=== PATIENT | male | born 1975 | race Caucasian/White ===

== ENCOUNTER 2022-11-08 18:35 | Emergency (ER) | payer MEDICAID, SELFPAY ==
--- NOTE | ~2022-11-08 | XR_ITS ---
EXAMINATION: XR FINGER, RIGHT CLINICAL INFORMATION: Right fifth finger dislocation. COMPARISON: None available. TECHNIQUE: 3 views of the right fifth finger. PA view of the right hand and oblique and lateral views of the fifth finger are acquired. FINDINGS: There is no evidence of acute fracture or dislocation in the fifth finger. The MCP joint alignment is also maintained. Remainder of the visualized osseous structures grossly appear unremarkable. XR/XR finger RT min 2V IMPRESSION: No evidence of acute fracture or dislocation in the right hand fifth finger.
--- NOTE | 2022-11-08 18:43 | ED_ITS ---
HPI - Extremity Injury (Upper) General Chief Complaint: Extremity Injury, Upper Stated Complaint: dislocated finger Time Seen by Provider: 11/08/22 21:21 Source: patient Mode of arrival: ambulatory Limitations: no limitations History of Present Illness HPI narrative: 47-year-old male with history of hypertension [id number] here with complaints of right 5th digit pain and difficulty with moving the finger. Patient reports he was playing Frisbee and his finger hyperextended. Patient tells me that he felt it dislocated and so he put it back into place before coming in. He tells me that since that happened it dislocated 2 more additional times just during his movement of the finger and he was able to put it back in place. Since then he tells me that he has increased pain to the digit and difficulty with flexing the digit. No numbness or tingling of the digit Related Data Previous Rx's Medication Instructions Recorded oxycodone 5 mg tablet 5 mg PO Q6H PRN pain #10 tabs 11/08/22 Allergies Allergy/AdvReac Type Severity Reaction Status Date / Time No Known Allergies Allergy Unverified 02/16/20 15:41 [No Known Allergies*] Review of Systems Review of Systems: Yes all other systems are reviewed and are negative Constitutional: Constitutional: Reports no additional constitutional complaints, Denies body ache(s), Denies chills, Denies fever(s), Denies head ache(s) and Denies weakness Eyes: Eyes: Reports no additional eye complaints and Denies change in vision ENT: Reports system reviewed and no additional complaints, except as documented, Denies dizziness, Denies headache(s), Denies nasal congestion, Denies nasal discharge and Denies neck pain Cardiovascular: Cardiovascular: Reports no additional cardiovascular complaints, Denies chest pain, Denies leg edema and Denies dyspnea Respiratory: Respiratory: Reports no additional respiratory complaints, Denies cough and Denies dyspnea Gastrointestinal: Gastrointestinal: Reports no additional gastrointestinal complaints, Denies abdominal pain, Denies diarrhea, Denies nausea and Denies vomiting Genitourinary: Genitourinary: Denies urinary incontinence Musculoskeletal: Musculoskeletal: Reports no additional musculoskeletal complaints, Denies back pain, Reports arthralgias, Reports joint swelling, Denies neck pain, Denies numbness and Denies tingling Integumentary/Breasts: Skin/Breast: Reports system reviewed and no additional complaints, except as docu and Denies rash Neurologic: Reports system reviewed and no additional complaints, except as documented, Denies Abnormal speech present, Denies dizziness, Denies headache(s), Denies numbness, Denies tingling and Denies weakness PMFSH Past Medical History Attestation statement: The following information was validated with the patient. Source: old records reviewed and nursing notes reviewed Social History Social History Advance Directives: No Advance Directives Information Provided: No Physical Exam Vital Signs: Vital Signs: Last Vital Signs Temp 97.8 F 11/08/22 18:44 Pulse 82 11/08/22 18:44 Resp 18 11/08/22 18:44 BP 141/81 H 11/08/22 18:44 Pulse Ox 96 11/08/22 18:44 O2 Del Method Room Air 11/08/22 18:44 BMI result Body Mass Index 31.1 Const: General: cooperative, healthy appearing, comfortable and no acute distress Orientation/consciousness: patient oriented x3 Limitations: no limitations HEENT: Head: Yes normal to inspection Ears: hearing grossly normal bilaterally General nose exam: Normal external nose present Face and sinus: Yes normal facial exam Mouth: Normal oral and palatal mucosa present Throat: Yes posterior oropharynx normal Eyes: General: appearance normal, both eyes and all related structures Pupils: Equal, round and reactive pupils present Neck: Neck: Yes normal visual inspection Chest: Chest palpation & inspection: normal inspection of the chest Resp: Effort & Inspection: normal respiratory effort Auscultation: clear to auscultation bilaterally Cardio: Rate: regular rate Rhythm: regular rhythm Peripheral pulses: Peripheral pulses 2+ throughout GI: Inspection: Yes normal to inspection Palpation (GI): Soft to palpation and nontender Auscultation: normal bowel sounds Back/Spine/Pelvis: Thoracic/Lumbar Spine: thoracic and lumbar spine normal to inspection Skin: General skin exam: no rashes or lesions noted Neuro: General: patient oriented x3, no focal motor deficits and normal sensation to monofilament Cranial nerves: Yes Equal, round and reactive pupils present Cognition (Neuro): normal cognition Speech: No Abnormal speech present Gait exam (Neuro): Normal gait present Motor exam (neuro): 5/5 motor strength present throughout Extrem: Other: Patient has swelling over the entire right 5th digit with ecchymosis. There is no obvious deformity. Patient reports inability to flex the digit. He has normal cap refill distant. Normal sensation distal. Course Course Course Narrative: RME - 47 yo right hand dominant male presents to the ER for evaluation of a right pinky finger dislocation that occurred just prior to arrival while playing frisbee. He state at the PIP joint the finger juts out laterally when it is not tied to his ring finger. He has reduced the dislocated joint 3 times already and states it keeps popping out. currently fully extended and appears to be in place. Plan: x-ray to assess for fracture. Reevaluation(s) Reevaluation #1: X-ray show no acute fracture dislocation. Based on the amount of swelling and ecchymosis with limited ability to perform flexion there may be ligamental injury. Therefore I will place the patient in a finger splint with recommendations to follow-up outpatient with Hand surgery. Reviewed worrisome signs and symptoms of when to return to the emergency room. Comfortable plan for discharge home. Medications Administered Discontinued Medications Generic Name Dose Route Start Last Admin Trade Name Freq PRN Reason Stop Dose Admin Ibuprofen 800 mg 11/08/22 19:45 11/08/22 19:50 Ibuprofen 800 Mg Tablet PO 11/08/22 19:46 800 mg ONCE ONE Administration Oxycodone HCl 5 mg 11/08/22 21:45 11/08/22 22:43 Oxycodone Hcl Immed Release 5 Mg Tablet PO 11/08/22 21:46 5 mg ONCE ONE Administration Medical Decision Making Medical Decision Making [facility] Narrative: 47-year-old male [id number] here with right 5th digit pain inability to flex digit after an injury which occurred while playing Frisbee. Patient is concerned that he may have dislocated the finger several times prior to arrival and reduced it himself. Still having a lot of pain and difficulty with range of motion. On exam patient with ecchymoses, swelling over the right 5th entire digit with reports of inability to flex the digit. Will check x-ray Differential Diagnosis Differential Diagnoses: The differential diagnosis associated with the presentation includes Fracture, dislocation, ligamental injury, tendon injury Independent Interpretation I performed an independent interpretation of an: Plain X-Ray Interpretation: I indepedentely reviewed the x-ray and agree with radiologist's report Radiology Impression Discussion of test interpretation with radiology: I have reviewed the radiologist's reading. Radiologist Impression: [address] [address] XRay Report Signed Patient: Alec Acosta MR#: [id number] : 1975 Acct:[id number] Age/Sex: 47 / M ADM Date: 11/08/22 Loc: HO.ED Attending Dr: Ordering Physician: Renita Colindres Date of Service: 11/08/22 Procedure(s): XR finger RT min 2V Accession Number(s): [id number] cc: Renita Colindres~ EXAMINATION: XR FINGER, RIGHT CLINICAL INFORMATION: Right fifth finger dislocation.? COMPARISON: None available.? TECHNIQUE: 3 views of the right fifth finger. PA view of the right hand and oblique and lateral views of the fifth finger are acquired. FINDINGS: There is no evidence of acute fracture or dislocation in the fifth finger. The MCP joint alignment is also maintained. Remainder of the visualized osseous structures grossly appear unremarkable. XR/XR finger RT min 2V IMPRESSION: No evidence of acute fracture or dislocation in the right hand fifth finger. Discharge Plan Discharge Clinical Impression: Sprain of finger of right hand Patient Disposition: Home, Self-Care Instructions: Finger Sprain (ED) Additional Instructions: The x-ray shows no fracture or dislocation. However due to her limited range of motion you may have an injury to the ligament or tendon We are placing you in a splint which is for comfort only Continue Motrin which will help with inflammation and pain Apply ice to the area Take the pain medication only as needed Call Orthopedics next week for follow-up Prescriptions: New oxycodone 5 mg tablet 5 mg PO Q6H PRN (Reason: pain) Qty: 10 0RF Rx Instructions: Partial Fill upon patient request. Referrals: [facility] [Provider Group] - 5 days Interventions: ED Discharge Assessment Last Done: 11/08/22 22:30 Discharge Date/Time: 11/08/22 22:31
[2022-11-08 18:44] VITALS: BP 141/81; PULSE 82; RESP 18; TEMP 36.6; O2SAT 96; BMI 31.1
[2022-11-08] MEDS: Ibuprofen 800 MG TABLET PO (19:50)
[2022-11-08] MEDS: oxyCODONE HCl Immed Release 5 MG TABLET PO (22:43)
== END 2022-11-08 22:31 | disposition home or self-care (01) ==
PROVIDERS: Emergency Provider Emergency Medicine
DX: S63.616A Unspecified sprain of right little finger, initial encounter (principal); X50.1XXA Overexertion from prolonged static or awkward postures, initial encounter; Y93.74 Activity, frisbee; Y92.9 Unspecified place or not applicable; Y99.9 Unspecified external cause status
CPT/HCPCS: 29130; 73140; 99283

== ENCOUNTER 2022-11-21 10:18 | Outpatient (REF) | payer MEDICAID, SELFPAY ==
--- NOTE | ~2022-11-21 | XR_ITS ---
EXAMINATION: XR HAND, RIGHT CLINICAL INFORMATION: Pain COMPARISON: Previous x-ray 11/08/2022 TECHNIQUE: PA, lateral, and oblique views of the right hand. FINDINGS: There are new soft tissue calcifications or ossifications adjacent to the proximal phalanx of the fifth finger at the PIP joint. Appearance is questionable for small avulsion fracture versus a soft tissue trauma. There is adjacent soft tissue swelling. No other fracture. No dislocation. Joint spaces and soft tissues are otherwise normal. XR/XR hand RT min 3V IMPRESSION: New small soft tissue calcifications or ossifications adjacent to the proximal phalanx of the fifth finger at the PIP joint. Differential would include avulsion fracture and trauma to the soft tissues.
== END 2022-11-21 10:19 | disposition home or self-care (01) ==
LOC: HO.HOSX 10:18
PROVIDERS: Visit Provider Physician Assistant
DX: S62.306A Unspecified fracture of fifth metacarpal bone, right hand, initial encounter for closed fracture (principal)
CPT/HCPCS: 73130; 99202

== ENCOUNTER 2023-08-11 08:49 | Outpatient (REF) | payer MEDICAID, SELFPAY ==
[2023-08-11 11:53] LABS: Alanine Aminotransferase 21 U/L (0-40); Albumin Level 4.6 g/dL (3.5-5.0); Alkaline Phosphatase 38 U/L (39-117); Anion Gap 11 (12-20); Aspartate Amino Transferase 20 U/L (5-37); Bilirubin Total 0.7 mg/dL (0.0-1.0); Blood Urea Nitrogen 14 mg/dL (9-16); Calcium 10.2 mg/dL (8.4-10.2); Carbon Dioxide 29 mmol/L (22-29); Chloride 104 mmol/L (96-108); Cholesterol 127 mg/dL (<200); Estimated Glomerular Filt Rate > 60; Glucose Random 103 mg/dL (60-115); HDL Cholesterol 50 mg/dL (>40); LDL Cholesterol Calculated 59 mg/dL (<100); Potassium 3.8 mmol/L (3.3-5.1); Sodium 140 mmol/L (135-145); Total Protein 8.2 g/dL (6.5-8.0); Triglycerides 92 mg/dL (<150)
== END 2023-08-11 08:50 | disposition home or self-care (01) ==
LOC: HO.HHCL 08:49
PROVIDERS: Visit Provider Registered Nurse
DX: I10 Essential (primary) hypertension (principal)
CPT/HCPCS: 36415; 80053; 80061

== ENCOUNTER 2023-10-23 11:31 | Outpatient (REF) | payer MEDICAID, SELFPAY ==
[2023-10-27 17:54] LABS: Rubella IgG Antibody <0.90 Index; Rubeola IgG (Measles) >300.00 AU/mL
== END 2023-10-23 11:32 | disposition home or self-care (01) ==
LOC: HO.HHCL 11:31
PROVIDERS: Visit Provider Registered Nurse
DX: Z00.00 Encounter for general adult medical examination without abnormal findings (principal)
CPT/HCPCS: 36415; 86735; 86762; 86765

== ENCOUNTER 2024-01-12 14:09 | Outpatient (REF) | payer MEDICAID, SELFPAY ==
--- NOTE | ~2024-01-12 | US_ITS ---
EXAMINATION: US SCROTUM CLINICAL INFORMATION: Testicular mass, hydrocele/varicocele. COMPARISON: None available. TECHNIQUE: A sonogram of the scrotum was performed assessing castrejon-scale appearance and color Doppler flow. Spectral Doppler analysis of the arterial and venous flow were performed in the testes bilaterally. FINDINGS: RIGHT: Right testicle measures 5.0 x 2.6 x 3.5 cm, volume 22.9 mL. Parenchymal echotexture is homogeneous. No focal testicular parenchymal lesions are visualized. Spectral Doppler analysis of the arterial and venous flow is normal in the right testis. Right epididymal head is normal in size. There is a epididymal head cyst that measures 2.5 No right hydrocele or varicocele is seen. LEFT: Left testicle measures 4.6 x 2.2 x 3.8 cm, volume 20.1 mL. Parenchymal echotexture is homogeneous. No focal testicular parenchymal lesions are visualized. Incidental note of a small appendix testis. Spectral Doppler analysis of the arterial and venous flow is normal in the left testis. Left epididymal head is normal in size. There is an epididymal head cyst that measures 1.7 x 1.1 x 1.6 cm. No left hydrocele or varicocele is seen. US/US scrotum IMPRESSION: Bilateral epididymal head cysts, the larger is on the right which measures 2.5 1.7 x 2.5 cm. Incidental note of an appendix testis on the left which is a normal anatomic variant. No testicular lesions identified. Electronically signed by: Jose Blair MD 02/03/2024 04:57 PM EDT
== END 2024-01-12 14:10 | disposition home or self-care (01) ==
LOC: HO.US 14:09
PROVIDERS: Visit Provider Nurse Practitioner Primary Care
DX: N50.89 Other specified disorders of the male genital organs (principal)
CPT/HCPCS: 76870

== ENCOUNTER 2024-04-11 08:54 | Outpatient (AMB) | payer MEDICAID, SELFPAY ==
--- NOTE | 2024-04-11 08:56 | A.OFFVIS_ITS ---
Intake Visit Reasons: bilateral epididymal cysts Intake Note: New Patient presents for initial visit for bilateral epididymal cysts Urology Medications: none Blood Thinner: none County Engineer Required: No Accompanied by: Self / Same As Patient Allergies No Known Allergies [No Known Allergies*] Allergy (Verified 04/11/24 09:30) Medication List - Last Reconciled 04/11/24 by TAMRA Perrin cetirizine 10 mg PO DAILY hydrochlorothiazide 25 mg PO DAILY lisinopril 10 mg PO DAILY rosuvastatin 20 mg PO DAILY HPI Comments Details: Alec is a very pleasant 48-year-old male patient of Dr. Estrada. He has a past medical history of hypertension and hypercholesteremia. He presents to the office today as a new patient for bilateral epididymal head cysts. In discussion with the patient today he reports having followed up with his PCP for abnormal lumps he had noted in his scrotum at which time a scrotal ultrasound was ordered and performed. These results were reviewed with the patient today. Bilateral testicles with epididymal head cysts, the largest on the right which measures a proximally 2.5 cm otherwise no testicular lesions noted. He reports having had scrotal assessment with PCP and does not wish to undergo assessment today. He reports no bothersome urinary issues or concerns. He reports at times he does feel fullness to the testicles however he has not experienced any testicular pain and or nausea or vomiting. He denies urinary urgency, urinary frequency, incontinence, nocturia, hematuria, dysuria, foul smelling urine, changes to urinary stream, flank pain, fever, and or chills. He is happy with her current voiding parameters. He otherwise offers no other issues or concerns today. [facility] Medical History History of high cholesterol History of high blood pressure Social History Alcohol intake: former Patient Tobacco Use Status: Former Tobacco user Current occupational status: unemployed Current occupation: right hand dominant Review of Systems Const All systems reviewed & are unremarkable except as noted in HPI and below Physical Exam Const General: cooperative, healthy appearing, comfortable, no acute distress, well developed, alert and awake Orientation/consciousness: patient oriented x3 Limitations: no limitations HEENT Head: Yes normal to inspection, Yes normocephalic and Yes atraumatic Ears: hearing grossly normal bilaterally Eyes General: appearance normal, both eyes and all related structures Neck Neck: Yes normal visual inspection and Yes trachea midline Chest Chest palpation & inspection: normal inspection of the chest Resp Effort & Inspection: normal respiratory effort and able to speak in complete sentences Cardio Rate: regular rate GI Inspection: Yes normal to inspection General: Yes no CVA tenderness Back/Spine/Pelvis Back: no CVA tenderness Skin General skin exam: no rashes or lesions noted Neuro General: patient oriented x3 Extrem General: Yes normal to inspection Psych Appearance: grossly normal and well kempt Mental Status: mental status grossly normal Speech and movement: Normal speech and movement present and Clear speech present Affect: normal affect Attitude: cooperative Thought process: Normal thought process present Thought content: Normal thought content present Insight: Fair insight present (Psych) Judgement: Fair judgement present (Psych) Results AMB Urinalysis, Automated UA Leukoctes 0 Park/uL Last Edit by [employer] on 04/11/24 09:18 UA Nitrite Last Edit by [employer] on 04/11/24 09:18 UA Urobilinogen 0.2 mg/dL Last Edit by [employer] on 04/11/24 09:18 UA Protein 0 mg/dL Last Edit by [employer] on 04/11/24 09:18 UA pH 5.5 Last Edit by [employer] on 04/11/24 09:18 UA Blood 80 [place]/uL Last Edit by [employer] on 04/11/24 09:18 UA Specific [place] 1.020 Last Edit by [employer] on 04/11/24 09:18 UA Ketone Last Edit by [employer] on 04/11/24 09:18 UA Bilirubin 0 mg/dL Last Edit by [employer] on 04/11/24 09:18 UA Glucose 0 mg/dL Last Edit by [employer] on 04/11/24 09:18 Results Reviewed Results Reviewed: Laboratory Last Values Urine pH (Auto) 5.5 04/11/24 09:14 Specific [place] (Auto) 1.020 04/11/24 09:14 Urine Protein (Auto) 0 mg/dL 04/11/24 09:14 Glucose (UA)(Auto) 0 mg/dL 04/11/24 09:14 Urine Blood (Auto) 80 [place]/uL 04/11/24 09:14 Urine Bilirubin (Auto) 0 mg/dL 04/11/24 09:14 Urine Urobilinogen (Auto) 0.2 mg/dL 04/11/24 09:14 Leukocyte Esterase (Auto) 0 Park/uL 04/11/24 09:14 Date of Service: 01/12/24 Procedure(s): US scrotum FINDINGS: RIGHT: Right testicle measures 5.0 x 2.6 x 3.5 cm, volume 22.9 mL. Parenchymal echotexture is homogeneous. No focal testicular parenchymal lesions are visualized. Spectral Doppler analysis of the arterial and venous flow is normal in the right testis. Right epididymal head is normal in size. There is a epididymal head cyst that measures 2.5 No right hydrocele or varicocele is seen. LEFT: Left testicle measures 4.6 x 2.2 x 3.8 cm, volume 20.1 mL. Parenchymal echotexture is homogeneous. No focal testicular parenchymal lesions are visualized. Incidental note of a small appendix testis. Spectral Doppler analysis of the arterial and venous flow is normal in the left testis. Left epididymal head is normal in size. There is an epididymal head cyst that measures 1.7 x 1.1 x 1.6 cm. No left hydrocele or varicocele is seen. IMPRESSION: Bilateral epididymal head cysts, the larger is on the right which measures 2.5 1.7 x 2.5 cm. Incidental note of an appendix testis on the left which is a normal anatomic variant. No testicular lesions identified. Assessment & Plan Assessment & Plan (1) Epididymal cyst: Code(s): N50.3 - Cyst of epididymis Category: Medical Plan In office urinalysis results with the patient today; as noted above; will send for urine cytology. Recent scrotal ultrasound results reviewed with the patient today; as noted above. Assessment offered however deferred. We discussed at length potential causes epididymal head cysts. He otherwise denies any bothersome urinary issues or concerns. He reports be happy with current voiding parameters. Discussed worsening symptoms. Will obtain scrotal ultrasound in 1 year for surveillance monitoring. Follow-up in 1 year with imaging to be completed prior; or sooner with any issues, concerns, and or questions. Orders: Orders US scrotum 1 Year N50.3 - Cyst of epididymis AMB Urinalysis Automated Today Z13.9 - Encounter for screening, unspecified Patient Instructions: The patient had an opportunity to ask questions regarding the treatment plan. All questions were answered. Physical exam, labs, and imaging were discussed and reviewed in detail. As well as risks, benefits, and discussion of treatment delarosa isaias. No major barriers to understanding were identified. The patient expressed understanding and agreement with the above treatment plan. The patient was made aware they should contact our office by phone for worsening of their current condition, the appearance of new symptoms, or with any questions or concerns. Compliance is encouraged with any medications and follow up testing that is ordered. It is a privilege to be allowed the opportunity to participate in? your urological care.? Again, if you have any questions or concerns If you have any questions or concerns please do not hesitate to contact me. The office is [phone]. This note is constructed using voice recognition software. While every effort has been made to ensure accuracy movie shot camera operator errors may have been included. Yours sincerely, TAMRA Perrin Coding Level of Care Code New Pt Level 3 (46414) Diagnoses Epididymal cyst N50.3
== END 2024-04-11 09:30 | disposition home or self-care (01) ==
PROVIDERS: PCP Nurse Practitioner Primary Care; Visit Provider Nurse Practitioner Family
DX: N50.3 Cyst of epididymis (principal); Z13.9 Encounter for screening, unspecified
CPT/HCPCS: 99203

== ENCOUNTER → 2024-04-11 08:54 | Outpatient (BNVA) | payer MEDICAID, SELFPAY | PROVIDERS: PCP Nurse Practitioner Primary Care; Visit Provider Nurse Practitioner Family | DX: N50.3 Cyst of epididymis (principal) | CPT/HCPCS: 81003; 99212 ==

== ENCOUNTER 2024-04-20 08:38 | Outpatient (REF) | payer MEDICAID, SELFPAY ==
[2024-04-20 11:50] LABS: Estimated Average Glucose 108 mg/dL; Hemoglobin A1C 143.6477 umol/L; Hemoglobin A1c % 5.4 % (<6.0); Total Hemoglobin (HGBA1C) 3986.6906 umol/L
[2024-04-20 12:08] LABS: Alanine Aminotransferase 65 U/L (0-40); Albumin Level 4.4 g/dL (3.5-5.0); Alkaline Phosphatase 34 U/L (39-117); Anion Gap 11 (12-20); Aspartate Amino Transferase 99 U/L (5-37); Bilirubin Total 0.6 mg/dL (0.0-1.0); Blood Urea Nitrogen 17 mg/dL (9-16); Calcium 9.7 mg/dL (8.4-10.2); Carbon Dioxide 27 mmol/L (22-29); Chloride 104 mmol/L (96-108); Cholesterol 134 mg/dL (<200); Estimated Glomerular Filt Rate > 60; Glucose Random 100 mg/dL (60-115); HDL Cholesterol 51 mg/dL (>40); LDL Cholesterol Calculated 55 mg/dL (<100); Potassium 3.6 mmol/L (3.3-5.1); Sodium 138 mmol/L (135-145); Total Protein 7.6 g/dL (6.5-8.0); Triglycerides 144 mg/dL (<150)
[2024-04-20 12:29] LABS: TSH reflex Free T4 1.64 uIU/mL (0.32-4.0)
== END 2024-04-20 08:39 | disposition home or self-care (01) ==
LOC: HO.HHCL 08:38
PROVIDERS: Visit Provider Registered Nurse
DX: R63.5 Abnormal weight gain (principal)
CPT/HCPCS: 36415; 80053; 80061; 83036; 84443

== ENCOUNTER 2024-04-26 15:47 | Outpatient (REF) | payer MEDICAID, SELFPAY | END 2024-04-26 15:48 | disposition home or self-care (01) | LOC: HO.US 15:47 | PROVIDERS: PCP Nurse Practitioner Primary Care; Visit Provider Registered Nurse | DX: R22.1 Localized swelling, mass and lump, neck (principal) | CPT/HCPCS: 76536 ==

== ENCOUNTER 2024-06-16 08:58 | Outpatient (REF) | payer MEDICAID, SELFPAY ==
[2024-06-16 12:39] LABS: Alanine Aminotransferase 41 U/L (0-40); Albumin Level 4.3 g/dL (3.5-5.0); Alkaline Phosphatase 33 U/L (39-117); Aspartate Amino Transferase 39 U/L (5-37); Bilirubin Direct 0.3 mg/dL (0.0-0.5); Bilirubin Total 0.7 mg/dL (0.0-1.0); Total Protein 7.9 g/dL (6.5-8.0)
== END 2024-06-16 08:59 | disposition home or self-care (01) ==
LOC: HO.HHCL 08:58
PROVIDERS: Visit Provider Registered Nurse
DX: E78.2 Mixed hyperlipidemia (principal)
CPT/HCPCS: 36415; 80076

== ENCOUNTER 2024-07-14 11:16 | Outpatient (REF) | payer MEDICAID, SELFPAY ==
--- NOTE | ~2024-07-14 | US_ITS ---
CLINICAL HISTORY: liver enzyme elevation, suspected hepatic steatosis US abdomen limited Comparison: None Findings: The visualized pancreas is normal. The aorta and inferior vena cava are normal caliber. The appearance of the liver suggests fatty infiltration without focal lesion. There is no intrahepatic bile duct dilatation. The common duct is 3.0 mm in diameter. The gallbladder is normal. There is no sonographic Duran sign. The main portal vein is antegrade. The right kidney is 13.6 cm in length. No ascites. IMPRESSION: 1. Hepatic steatosis. This document has been electronically signed by: Taimr Laguerre MD on 07/15/2024 08:31:18
--- OUTSIDE RECORDS SUMMARY | 2024-07-14 11:54 | XMS_ITS | Encounter Summary ---
Author Organization [employer] Address [address] [place] [address] Care Team Providers Care Felting Machine Operator Name Role Phone Florina Marshall [facility] Primary Care Provider [phone] Reason for Visit * Reason Onset Date Comments Results 06/17/2024 Encounter Details Date Type Department Care Team ([facility] st Contact Info) Description 06/17/[address] [facility] MEDICINE [address] [place] [address] Belle Miller RN Results Social History Tobacco Use Types Packs/Day Years Used Date Smoking Tobacco: Former Cigarettes Smokeless Tobacco: Never Alcohol Use Standard Drinks/Week Comments Never 0 (1 standard drink = 0.6 oz pur e alcohol) Alcohol Answer Date Recorded Frequency of Alcohol Consumption Not on file 08/07/2023 Average Number of Drinks Not on file 024 Frequency of Binge Drinking Not on file 12/2023 Score 0 08/07/2023 Depression Answer Date Recorded Patient Health Questionnaire-9 Score 0 10/16/2023 Patient Health Questionnaire-9 Score 0 10/16/2023 Last PHQ-9: Questionnaire Data Not on file 0 10/16/2023 Housing Stability Answer Date Recorded What is your housing situation today? I have jose flores 08/07/[address] you li ve. Do you have problems with any of the following? None of the above 08/07/2023 Food Insecurity Answer Date Recorded Within the past 12 months, y ou worried that your food would run out before you got money to buy more: Never True 08/07/2023 Within the past 12 months,th e food you bought just didn't last and you didn't have enough money to get more: Never True 12/2023 Transportation Answer Date Recorded In the past 12 months, has l ack of transportation kept you from medical appts, meetings, work or from getting things needed for daily living? No 08/07/2023 Utilities Answer Date Recorded In the past 12 months, has t he electric, gas, oil or water company threatened to shut off services in your home? No 08/07/2023 Depression Answer Date Recorded Patient Health Questionnaire-2 Score 0 10/16/2023 Internet Access Answer Date Recorded Internet Access Q1 Yes 04/08/2024 Internet Access Q2 Not on file 04/08/2024 Sex and Gender Information Value Date Recorded Sex Assigned at Male 03/31/2022 10:36 AM EDT Legal Sex Male 10:36 AM EDT Gender Identity Male 03/31/2022 10:36 AM EDT Sexual Orientation Straight 03/31/2022 10 :36 AM EDT documented as of this encounter Miscellaneous Notes * Telephone Encounter - Belle Miller RN - 06/17/2024 4:03 PM EST Telephone call to pt to advise that liver enzyme levels are improving but given the persistent elevation, PCP ordered abdominal ultrasound to examine this further. Informed pt that referral is under review and that [facility] will call in the next 1-2 weeks to schedule an appt for the ultrasound. Pt verbalized understanding, no further questions at this time. * Telephone Encounter - Belle Miller RN - 06/17/2024 3:57 PM EST ----- Message from Florina Marshall sent at 06/17/2024 3:49 PM EST ----- Please let patient know that liver enzyme elevation is improving however given how persistent this has been I would like to order an ultrasound of the liver. Thank you! documented in this encounter Plan of Treatment Not on file documented as of this encounter Visit Diagnoses Not on filedocumented in this encounter Additional Health Concerns Assessment Noted Time PHQ-9 Depression Total Score: 0 10/16/19 24 9:50 AM EDT documented as of this encounter Care Teams Felting Machine Operator Relationship Specialty Start Date End Date Florina Marshall FNP [address] [place] [address] PCP - General Family Medicine 02/27/21 documented as of this encounter
--- OUTSIDE RECORDS SUMMARY | 2024-07-14 11:54 | XMS_ITS | Clinical Summary ---
Author Organization [employer] Address [address] [facility] 7[address] [place] [address] Care Team Providers Care Implementation Advisor Name Role Phone Florina Marshall [facility] Primary Care Provider [phone] Allergies No known active allergies Medications cetirizine (ZyrTEC) 10 MG tabletIndications :Seasonal allergies TAKE 1 TABLET BY MOUTH ONCE DAILY 90 tablet 1 4 Active triamcinolone (Kenalog) 0.1 % ointment Apply topically 2 times daily. 15 g 2 4 Active lisinopril 10 MG tablet TAKE 1 TABLET BY MOUTH EVERY DAY 90 tablet 3 4 Active rosuvastatin (Crestor) 20 MG tablet Take 1 tablet (20 mg) by mouth Once per day. 90 tablet 4 Active hydroCHLOROthiazi de (HYDRODiuril) 25 MG tabletIndications :Essential hypertension TAKE 1 TABLET BY MOUTH EVERY DAY 90 tablet 1 4 Active Active Problems Problem Noted Date Diagnosed Date Tinnitus 12/22/2023 Elevated blood pressure reading 12/22/2023 Plantar fasciitis 12/22/2023 Chronic pain 12/22/2023 Milia of eyelid of left eye 12/11/2023 Assessment & Plan (12/11/2023 3:26 PM EDT): Clinical findings of left lower eyelid are consistent w tiny milia w no complaints so more cosmetic -explained pt are not concerning findings and not affecting vision ,pt would like to have annual eye exam so referred today to metal sorter -no stye or chalazion , no indication for ATB Essential hypertension 08/10/2023 Overview (08/10/2023): Hydrochlorothiazide 25mg Lisinopril 10mg Maintenance: - Aerobic exercise to reduce BP. Initial goal of 30 min walk 3-5x/week. Increase as tolerated. - low-sodium diet (goal: <2g/day) and heart healthy diet such as DASH to reduce BP and prevent ASCVD. - Home BP monitoring 1-2 x day with goal of <140/90. - Seek immediate medical attention for chest pain, palpitations, SOB, syncope, or sudden changes in mental status. - Do not change or discontinue current prescriptions without first consulting health care provider Assessment & Plan (08/10/2023 9:05 AM EDT): Well controlled Continue current regimen Healthcare maintenance 08/10/2023 Overview (10/16/2023): C-Scope: cologuard neg 07/2023 PSA: Routine age 50 AAA Screen: Age [address] screen: Age 50 Vision Exam: Through [facility], COD Dental Care: [facility] [place] History of tobacco use disorder 08/10/2023 Overview (08/10/2023): Former Quit 2021 Assessment & Plan (08/12/2023 6:35 AM EDT): Congratulated patient Mixed hyperlipidemia 08/10/2023 Overview (08/10/2023): Rosuvastatin 20mg daily Assessment & Plan (08/12/2023 6:35 AM EDT): Well controlled Continue current regimen Encounters Date Type Department Care Team Description 06/22/2024 Orders Only [facility] [address] [place] [address] Florina Marshall FNP Neck mass (Primary Dx) 06/17/2024 Telephone [facility] [address] [place], [place] [phone] Belle Miller, RN Results 06/17/2024 Orders Only [facility] [address] [place], [place] [phone] Florina Marshall, LIVE HANGER Elevated liver enzymes (Primary Dx) 06/15/2024 Orders Only [facility] [address] [facility] [place] [address] Florina Marshall KATHRINE Mixed hyperlipidemia (Primary Dx) 06/14/2024 Telephone [facility] [address] [facility] [place] [address] Rolando KATHRINE Heaton Call Back Request 05/12/2024 Refill [facility] [address] [place] [address] Florina MarshallKATHRINE Essential hypertension 04/21/2024 Telephone [facility] [address] [facility] [place] [address] Florina MarshallKATHRINE Results 04/18/2024 1:00 PM EST Office Visit [facility] [address] [place] [address] Florina MarshallKATHRINE Essential hypertension (Primary Dx); Weight gain; Lump in neck 04/18/2024 Refill [facility] [address] [place], [place] [phone] Florina MarshallKATHRINE Essential hypertension 04/18/2024 Refill [facility] [address] [facility] [place] [address] Florina MarshallKATHRINE 04/18/2024 Travel from Last 3 Months Immunizations Name Administration Dates Next Due Hep B, adult 01/30/2022,11/05/2021 MMR 10/29/2023 Tdap 04/20/2019 Social History Tobacco Use Types Packs/Day Years Used Date Smoking Tobacco: Former Cigarettes Smokeless Tobacco: Never Tobacco Cessation:Counseling Given: Not Answered Alcohol Use Standard Drinks/Week Comments Never 0 [...] Orientation Straight 03/31/2022 10 :36 AM EDT Last Filed Vital Signs Vital Sign Reading Time Taken Comments Blood Pressure 136/81 04/18/2024 1:07 PM EST Pulse 81 04/18/2024 1:07 PM EST Temperature 36.2 ??C (97.2 ??F) 04/18/2024 1:07 PM ES T Respiratory Rate 18 04/18/2024 1:07 PM EST Oxygen Saturation 98% 04/18/2024 1:07 PM EST Inhaled Oxygen Concentration - - Weight 129 kg (285 lb) 04/18/2024 1:07 PM EST Height 188 cm (6' 2 ) 04/18/2024 1:07 PM EST Body Mass Index 36.59 04/18/2024 1:07 PM EST Plan of Treatment Health Maintenance Due Date Last Done Comments CT Colonography 1975 Colonoscopy 1975 FIT 1975 FOBT 1975 Sigmoidoscopy 1975 Family Planning (PISQ) 08/23/1990 Hepatitis B Vaccines (3 of 3 - 19+ 3-dose series) 05/07/2022 01/30/2022, 11/05/2021 COVID-19 Vaccine (4 - season) 2024 05/27/2021, 09/21/2020, 08/29/2020 Influenza Vaccine (#1) 2024 Alcohol/Substance Use Screening 08/06/2024 08/07/2023 SDOH Screening 08/06/2024 08/07/2023 Depression Screening 10/15/2024 10/16/2023, 10/16/19 24 Tobacco Screening 06/22/2025 06/22/2024 Zoster Vaccines (1 of 2) 08/23/2025 Colorectal Cancer Screening 08/26/2026 FIT DNA/Cologuard 08/26/2026 08/27/2023 DTaP/Tdap/Td Vaccines (2 - Td or Tdap) 04/20/2029 04/20/2019 Lipid Panel 04/20/2029 04/20/2024, 0307/2023, 05/02/2022, Additional history exists RSV Patients and Patients Aged 60 years or older (1 - 1-dose 75+ series) 08/23/2050 HIV Screening Completed 10/30/2021 Hepatitis C Screening Completed 10/30/2021 HIB Vaccines Aged Out No longer eligi ble based on patient's age to complete this topic HPV Vaccines Aged Out No longer eligi ble based on patient's age to complete this topic Hepatitis A Vaccines Aged Out No long er eligible based on patient's age to complete this topic IPV Vaccines Aged Out No longer eligi ble based on patient's age to complete this topic Meningococcal Vaccine Aged Out No matteo holli eligible based on patient's age to complete this topic Pneumococcal Vaccine: Pediatrics (0 to 5 Years) and At-Risk Patients (6 to 49) Years) Aged Out No longer eligible based on patient's age to complete this topic RSV under 20 months Aged Out No longe r eligible based on patient's age to complete this topic Rotavirus Vaccines Aged Out No longer eligible based on patient's age to complete this topic Procedures Procedure Name Priority Date/Time Associated Diagnosis Comments HEPATIC FUNCTION PANEL Routine 06/16/2024 8:59 AM EST Mixed hyperlipidemia US HEAD NECK SOFT TISSUE Routine 04/26/2024 4:03 PM EST LIPID PANEL, STANDARD Routine 04/20/2024 8:40 AM EST Weight gain HEMOGLOBIN A1C Routine 04/20/2024 8:40 AM EST Weight gain COMPREHENSIVE METABOLIC PANEL Routine 04/20/2024 8:40 AM EST Weight gain TSH W/REFLEX TO FT4 Routine 04/20/2024 8 :40 AM EST Weight gain LAB COLOGUARD?? COLON CANCER SCREEN Routine 08/27/2023 8:04 AM EDT Encounter for screening for malignant neoplasm of colon ZZZ HISTORICAL HEPATITIS C AB W/REFL TO HCV RNA, QN, PCR Routine 10/30/2021 11:37 AM EDT HIV 1/2 ANTIGEN/ANTIBODY, FOURTH GENERATION W/RFL Routine 10/30/2021 11:37 AM EDT from Last 3 Months or Most Recently Relevant to Health Maintenance Results * (ABNORMAL) Hepatic Function Panel (06/16/2024 8:59 AM EST) Bilirubin, Total 0.7 0.0 - 1.0 mg/dL [facility] Bilirubin, Direct 0.3 0.0 - 0.5 mg/dL [facility] Aspartate Amino Transferase 39(H) 5 - 37 U/L [facility] Alanine Aminotransferase 41(H) 0 - 40 U/L [facility] Total Protein 7.9 6.5 - 8.0 g/dL [facility] Albumin Level 4.3 3.5 - 5.0 g/dL [facility] Alkaline Phosphatase 33(L) 39 - 117 U/L [facility] Blood Venous blood specimen / Unknown 06/16/2024 8:59 AM EST 06/16/2024 11:12 AM EST us Florina Rolando LIVE HANGER LAB BLOOD ORDERABLES Final Re sult [facility] [address] [place] [phone] * US Head Neck Soft Tissue (04/26/2024 4:03 PM EST) Anatomical Region Laterality Modality Head, Neck Ultrasound 04/26/2024 4:03 PM EST Narrative 06/18/2024 4:20 PM EST ? [facility] ?[address] ?[place] [address] ? Ultrasound Report ? Signed ? Patient: Alec Acosta ?MR#: [id number] ?? 2 ? : 1975 ?Acct:[id number] ? Age/Sex: 48 / M ?ADM Date: 04/26/24 ? Loc: HO.US ? Attending Dr: Florina Marshall LIVE HANGER ? Ordering Physician: Florina Marshall ?? Date of Service: 04/26/24 ?? Procedure(s): US soft tiss head and/or neck ?? Accession Number(s): [id number] ? cc: VENKAT WATSON NP; Florina Marshall LIVE HANGER ? EXAMINATION: ?? US SOFT TISSUE HEAD/NECK ? CLINICAL INFORMATION: ?? Left firm nodule. ? COMPARISON: ?? None available. ? TECHNIQUE: ?? Linear transducer grayscale and color Doppler examination of the ?? midline/left neck. ? FINDINGS: ?? Targeted ultrasound images were obtained by the development chemist of the area ?? of concern as indicated by the patient in the midline left neck ?? demonstrated a 1.6 x 1.6 x 2.2 cm complex lesion with complex cystic ?? components, well-defined vasquez and no discernible vascularity. ? US/US soft tiss head and/or neck ?? IMPRESSION: ?? 2.2 cm complex cystic mass in the area indicated by the patient in the ?? midline/left neck. While thyroglossal duct cyst could be considered ?? given midline location, other complex cystic masses should also be ?? considered. Correlation with clinical exam and possible additional ?? imaging with CT scan or MRI recommended. ? This study was presented to me on June 15, 2024 for interpretation. ?? PSA staff will provide results to referring provider at this time. ? Electronically signed by: ??Ana M Sevilla MD ??06/18/2024 04:18 PM EST ? Dictated By: ?Ana M Sevilla MD ? Signed By: ?<Electronically signed by Ana M Sevilla MD in OV> ? 06/18/24 1618 ? DD/ 1603 ? TD/TT: 04/26/24 1604 ? Tube Drawing Supervisor: ? Procedure Note Donlawrenceinterpreter, Image - 06/18/[address] [address] Ultrasound Report Signed Patient: Alec Acosta PMR#: [id number] 2 : 1975Acct:[id number] Age/Sex: 48 / MADM Date: 04/26/24 Loc: HO.US Attending Dr: Florina CHISHOLM Ordering Physician: Florina Marshall Date of Service: 04/26/24 Procedure(s): US soft tiss head and/or neck Accession Number(s): [id number] cc: VENKAT WATSON NP; Florina Marshall EXAMINATION: US SOFT TISSUE HEAD/NECK CLINICAL INFORMATION: Left firm nodule. COMPARISON: None available. TECHNIQUE: Linear transducer grayscale and color Doppler examination of the midline/left neck. FINDINGS: Targeted ultrasound images were obtained by the development chemist of the area of concern as indicated by the patient in the midline left neck demonstrated a 1.6 x 1.6 x 2.2 cm complex lesion with complex cystic components, well-defined vasquez and no discernible vascularity. US/US soft tiss head and/or neck IMPRESSION: 2.2 cm complex cystic mass in the area indicated by the patient in the midline/left neck. While thyroglossal duct cyst could be considered given midline location, other complex cystic masses should also be considered. Correlation with clinical exam and possible additional imaging with CT scan or MRI recommended. This study was presented to me on June 15, 2024 for interpretation. PSA staff will provide results to referring provider at this time. Electronically signed by: Ana M Sevilla MD 06/18/2024 04:18 PM EST Dictated By: Ana M Sevilla MD Signed By: <Electronically signed by Ana M Sevilla MD in OV> 06/18/24 1618 DD/ 1603 TD/TT: 04/26/24 1604 Tube Drawing Supervisor: Result [facility] IMG US PROCEDURES Edited Resu lt - Final * TSH W/Reflex to FT4 (04/20/2024 8:40 AM EST) TSH reflex Free T4 1.64 0.32 - 4.0 uIU/mL [facility] Blood Venous blood specimen / Unknown 04/20/2024 8:40 AM EST 04/20/2024 11:22 AM EST Result [facility] LAB BLOOD ORDERABLES Final Re sult [facility] [address] [place] [phone] * Hemoglobin A1c (04/20/2024 8:40 AM EST) Hemoglobin A1c 5.4 <6.0 % [facility] Comment:Hemoglobin A1C Refer ence Range Adults: 4.8 - 6.0 % Non diabetic: < 6.0 % Goal: < 7.0 %Additional Action Suggested: > 8.0 %Note: Hemoglobin A1c results are invalid for patients with abnormal amounts of HbF. Blood transfusions may impact the HbA1c concentration in the patient sample. Estimated Average Glucose 108 mg/dL [facility] Comment:eAG = Estimated ave rage glucose which is %A1C expressed asaverage glucose, using the formula of the I9D-YyrdckdZjestbm Glucose study (ADAG), Diabetes Care, Vol.31,#8,Dec. 2007 Blood Venous blood specimen / Unknown 04/20/2024 8:40 AM EST 04/20/2024 11:28 AM EST us Florina [place] LIVE HANGER LAB BLOOD ORDERABLES Final Re sult Performing Organization Address [facility] de Phone Number [facility] [address] [place] [phone] [phone] * Lipid Panel, Standard (04/20/2024 8:40 AM EST) Triglycerides 144 <150 mg/dL [facility] Comment:Desirable Triglyceri de: less than 150 mg/dLBorderline High Triglyceride 150-199 mg/dLHigh Triglyceride: 200-499 mg/dLVery High Triglyceride: greater than or equal to 5OO mg/dL Cholesterol 134 <200 mg/dL [facility] Comment:Desirable Cholestero l: less than 200 mg/dLBorderline High Cholesterol: 200-239 mg/dLHigh Cholesterol: greater than 239 mg/dL LDL Cholesterol Calculated 55 <100 mg/dL [facility] Comment:Desirable LDL: less than 100 mg/dLNear Optimal/Above Optimal LDL: 110- 129 mg/dLBorderline High LDL: 130-159 mg/dLHigh LDL: 160-189 mg/dLVery High LDL: greater than or equal to 190 mg/dL HDL Cholesterol 51 >40 mg/dL [facility] Comment:Desirable HDL: great er than 40 mg/dL Note: This HDL assay may give artificially low results in patients with liver disease. Blood Venous blood specimen / Unknown 04/20/2024 8:40 AM EST 04/20/2024 11:22 AM EST [facility] LIVE HANGER LAB BLOOD ORDERABLES Final Re sult Performing Organization Address [facility] Co de Phone Number [facility] [address] [place] [phone] * (ABNORMAL) Comprehensive Metabolic Panel (04/20/2024 8:40 AM EST) Sodium 138 135 - 145 mmol/L [facility] Potassium 3.6 3.3 - 5.1 mmol/L [facility] Chloride 104 96 - 108 mmol/L [facility] Carbon Dioxide 27 22 - 29 mmol/L [facility] Anion Gap 11(L) 12 - 20 [facility] Urea Nitrogen (BUN) 17(H) 9 - 16 mg/dL [facility] Creatinine, Serum 0.79 0.5 - 1.4 mg/dL [facility] Estimated Glomerular Filt Rate >60 [facility] Comment:Chronic Kidney Disea se: Estimated GFR < 60 mL/min/[id number] Kidney Disease: Estimated GFR < 15 mL/min/1.73m2 Glucose 100 60 - 115 mg/dL [facility] Calcium 9.7 8.4 - 10.2 mg/dL [facility] Bilirubin, Total 0.6 0.0 - 1.0 mg/dL [facility] Aspartate Amino Transferase 99(H) 5 - 37 U/L [facility] Alanine Aminotransferase 65(H) 0 - 40 U/L [facility] Total Protein 7.6 6.5 - 8.0 g/dL [facility] Albumin Level 4.4 3.5 - 5.0 g/dL [facility] Alkaline Phosphatase 34(L) 39 - 117 U/L [facility] Blood Venous blood specimen / Unknown 04/20/2024 8:40 AM EST 04/20/2024 11:22 AM EST [facility] LAB BLOOD ORDERABLES Final Re sult [facility] [address] [place] [phone] * Cologuard?? colon cancer screening (08/27/2023 8:04 AM EDT) Cologuard Result Negative Negative 09/03/19 9:33 AM EDT [employer] (CLIA #:[id number]) Comment: NEGATIVE TEST RESULT. A negative Cologuard result indicates a low likelihood that a colorectal cancer (CRC) or advanced adenoma (adenomatous polyps with more advanced pre-malignant features) ??is present. The chance that a person with a negative Cologuard test has a colorectal cancer is less than 1 in 1500 (negative predictive value >99.9%) or has an ??advanced adenoma is less than ??5.3% (negative predictive value 94.7%). These data are based on a prospective cross-sectional study of 10,000 individuals at average risk for colorectal cancer who were screened with both Cologuard and colonoscopy. (Petra Bell al, N Engl J Med 2014;370(14):1286- 1297) The normal value (reference range) for this assay is negative. COLOGUARD RE-SCREENING RECOMMENDATION: Periodic colorectal cancer screening is an important part of preventive healthcare for asymptomatic individuals at average risk for colorectal cancer. ??Following a negative Cologuard result, the [place] [employer] and U.S. Multi-Society Task Force screening guidelines recommend a Cologuard re-screening interval of 3 years. References: [place] [employer] Guideline for Colorectal Cancer Screening: https://www.cancer.org/cancer/bzrnx-kuwkhm-liymfj/bfymiooqo-dkbqswmox-eplznuw/ac s-rec ommendations.html.; Horacio DK, Chrissy CHA, Natalia HealyK, Colorectal Cancer Screening: Recommendations for Physicians and Patients from the U.S. Multi-Society Task Force on Colorectal Cancer Screening , Am J Gastroenterology 2017; 112:7552-1497. TEST DESCRIPTION: Composite algorithmic analysis of stool DNA-biomarkers with hemoglobin immunoassay. ?? Quantitative values of individual biomarkers are not reportable and are not associated with individual biomarker result reference ranges. Cologuard is intended for colorectal cancer screening of adults of either sex, 45 years or older, who are at average-risk for colorectal cancer (CRC). Cologuard has been approved for use by the U.S. FDA. The performance of Cologuard was established in a cross sectional study of average-risk adults aged 50-84. Cologuard performance in patients ages 45 to 49 years was estimated by sub-group analysis of near-age groups. Colonoscopies performed for a positive result may find as the most clinically significant lesion: colorectal cancer [4.0%], advanced adenoma (including sessile serrated polyps greater than or equal to 1cm diameter) [20%] or non- advanced adenoma [31%]; or no colorectal neoplasia [45%]. These estimates are derived from a prospective cross-sectional screening study of 10,000 individuals at average risk for colorectal cancer who were screened with both Cologuard and colonoscopy. (Petra Bell al, N Engl J Med 2014;370(14):6565-1335.) Cologuard may produce a false negative or false positive result (no colorectal cancer or precancerous polyp present at colonoscopy follow up). A negative Cologuard test result does not guarantee the absence of CRC or advanced adenoma (pre-cancer). The current Cologuard screening interval is every 3 years. ([place] [employer] and U.S. Multi-Society Task Force). Cologuard performance data in a 10,000 patient pivotal study using colonoscopy as the reference method can be accessed at the following location: www.[employer]ica.[employer]/results. Additional description of the Cologuard test process, warnings and precautions can be found at www.[employer]Reader [employer]rd.[employer]. Stool specimen (specimen) 08/27/2023 8:04 AM EDT 08/29/2023 12:00 PM EDT [facility] LAB MOLECULAR DIAGNOSTICS ORD ERABLES Final Result [facility] (CLIA #:[id number]) [place] [address], * HEPATITIS C AB W/REFL TO HCV RNA, QN, PCR (10/30/2021 11:37 AM EDT) HEPATITIS C ANTIBODY NON-REACT JUAN PABLO NON-REACT JUAN PABLO [facility] INDEX 0.13 <1.00 [facility] Comment: ?? HCV antibody was non-reactive. There is no laboratory ?? evidence of HCV infection. ?? In most cases, no further action is required. However, if recent HCV exposure is suspected, a test for HCV RNA (test code 05769) is suggested. ?? For additional information please refer to http://education.[employer]/faq/DGS50p1 (This link is being provided for informational/ educational purposes only.) ?? 10/30/2021 11:3 7 AM EDT [facility] L[facility] HANGER HISTORICAL/NON ORDERABLE LABS Final Result Performing Organization Address [facility] de Phone Number [facility] [address] * HIV 1/2 ANTIGEN/ANTIBODY,FOURTH GENERATION W/RFL (10/30/2021 11:37 AM EDT) HIV-1/2 ANTIGEN AND ANTIBODIES, 4TH GENERATION W/ REFLEX NON-REACT JUAN PABLO NON-REACT JUAN PABLO [facility] Comment: HIV-1 antigen and HIV-1/HIV-2 antibodies were not detected. There is no laboratory evidence of HIV infection. ?? PLEASE NOTE: This information has been disclosed to you from records whose confidentiality may be protected by state law. ??If your state requires such protection, then the state law prohibits you from making any further disclosure of the information without the specific written consent of the person to whom it pertains, or as otherwise permitted by law. A general authorization for the release of medical or other information is NOT sufficient for this purpose. ? For additional information please refer to http://education.[employer]/faq/OHO443 (This link is being provided for informational/ educational purposes only.) ? The performance of this assay has not been clinically validated in patients less than 2 years old. ?? 10/30/2021 11:3 7 AM EDT [facility] LAB BLOOD ORDERABLES Final Re sult Performing Organization Address [facility] de Phone Number [facility] [address] from Last 3 Months or Most Recently Relevant to Health Maintenance Insurance [facility] C3 HSN PARTIAL Care Teams Implementation Advisor Relationship Specialty Start Date End Date Florina Marshall FNP [address] [place] [phone] PCP - General Family Medicine 02/27/21
--- OUTSIDE RECORDS SUMMARY | 2024-07-14 11:54 | XMS_ITS | Encounter Summary ---
Author Organization [employer] Address [address] [facility] [address] [place] [address] Care Team Providers Care Limnologist Name Role Phone Florina Marshall [facility] Primary Care Provider Encounter Details Date Type Department Care Team (Late st Contact Info) Description 07/30/2022 Orders Only [facility] [address] [place] [address] Tina Husain LPN Social History Tobacco Use Types Packs/Day Years Used Date Smoking Tobacco: Never Assessed Sex and Gender Information Value Date Recorded Sex Assigned at Male 03/31/2022 10:36 AM EDT Legal Sex Male 10:36 AM EDT Gender Identity Male 03/31/2022 10:36 AM EDT Sexual Orientation Straight 03/31/2022 10 :36 AM EDT documented as of this encounter Plan of Treatment Not on file documented as of this encounter Visit Diagnoses Not on filedocumented in this encounter Care Teams Limnologist Relationship Specialty Start Date End Date Rolando KATHRINE Heaton [address] [place] [phone] PCP - General Family Medicine 02/27/21 documented as of this encounter
--- OUTSIDE RECORDS SUMMARY | 2024-07-14 11:54 | XMS_ITS | Encounter Summary ---
Author Organization [employer] Address 75 [facility] 7t [place] [address] Care Team Providers Care Loss Prevention Agent Name Role Phone Florina Marshall Primary Care Provider [phone] Reason for Referral * Imaging (Routine) - Authorized Specialty Diagnoses / Procedures Referred By Patrick rodriguez Referred To Contact Radiology Diagnoses Elevated liver enzymes Procedures US Abdomen Limited Florina Marshall FNP [address] [place] [address] Phone: tel: fax: [address] Phone: tel: fax: Referral ID Status Reason Start Date Expiration Date V isits Requested Visits Authorized [id number] Authorized 06/17/2024 06/17/2025 1 1 Encounter Details Date Type Department Care Team (Late st Contact Info) Description 06/17/2024 Orders Only [facility] [address] [place] [address] [phone] Florina Marshall FNP [address] [place] [address] Elevated liver enzymes (Primary Dx) Social History Tobacco Use Types Packs/Day Years [...] as of this encounter Plan of Treatment Scheduled Orders Name Type Priority Associated Diagnoses Orde r Schedule US Abdomen Limited Imaging Routine Elevated liver enzymes Expected: 06/17/2024, Expires: 06/17/2025 documented as of this encounter Visit Diagnoses Diagnosis Elevated liver enzymes- Primary Other nonspecific abnormal serum enzyme levels documented in this encounter Additional Health Concerns Assessment Noted Time PHQ-9 Depression Total Score: 0 10/16/19 24 9:50 AM EDT documented as of this encounter Care Teams Loss Prevention Agent Relationship Specialty Start Date End Date Florina Marshall FNP [address] [place] [address] PCP - General Family Medicine 02/27/21 documented as of this encounter
--- OUTSIDE RECORDS SUMMARY | 2024-07-14 11:54 | XMS_ITS | Encounter Summary ---
Author Organization [employer] Address 75 [facility] 7t [place] [address] Care Team Providers Care Sheet Heater Helper Name Role Phone Florina Marshall [facility] Primary Care Provider [phone] Reason for Visit * Reason Onset Date Comments Med Refill 04/18/2024 Encounter Details Date Type Department Care Team ([facility] st Contact Info) Description 04/18/2024 Refill [facility] [address] [place] [address] [facility] [address] [place] [address] Social History Tobacco Use Types Packs/Day Years [...] documented as of this encounter Care Teams Sheet Heater Helper Relationship Specialty Start Date End Date Florina Marshall FNP [address] [place] [address] PCP - General Family Medicine 02/27/21 documented as of this encounter
--- OUTSIDE RECORDS SUMMARY | 2024-07-14 11:54 | XMS_ITS | Encounter Summary ---
Author Organization [employer] Address [address] [facility] [address] 7t [place] [address] Care Team Providers Care Door Clamp Operator Name Role Phone Rolando [facility] Primary Care Provider [phone] Reason for Visit * Reason Onset Date Comments Med Refill 04/18/2024 Encounter Details Date Type Department Care Team (Late st Contact Info) Description 04/18/2024 Refill [facility] MED & PEDS [address] [place], [place] [phone] Omar [facility] [address] [place] [address] Essential hypertension Social History Tobacco Use Types Packs/Day Years [...] your housing situation today? I have jose sandra 08/07/[address] you li [...] as of this encounter Visit Diagnoses Diagnosis Essential hypertension Unspecified essential hypertension documented in this encounter Additional Health Concerns Assessment Noted Time PHQ-9 Depression Total Score: 0 10/16/19 24 9:50 AM EDT documented as of this encounter Care Teams Door Clamp Operator Relationship Specialty Start Date End Date Florina Marshall FNP [address] [place] [address] PCP - General Family Medicine 02/27/21 documented as of this encounter
--- OUTSIDE RECORDS SUMMARY | 2024-07-14 11:54 | XMS_ITS | Encounter Summary ---
Author Organization [employer] Address 75 [facility] 7t [place] [address] Care Team Providers Care Toll Bridge Operator Name Role Phone Florina Marshall [facility] Primary Care Provider [phone] Encounter Details Date Type Department Care Team (Late st Contact Info) Description 04/07/[address] [facility] MED & PEDS [address] [place] [address] Tina Husain LPN Social History Tobacco Use [...] on filedocumented in this encounter Care Teams Toll Bridge Operator Relationship Specialty Start Date End Date Rolando KATHRINE Heaton [address] [place] [address] PCP - General Family Medicine 02/27/21 documented as of this encounter
--- OUTSIDE RECORDS SUMMARY | 2024-07-14 11:54 | XMS_ITS | Encounter Summary ---
Author Organization [employer] Address [address] [place] [address] 7t [place] [address] Care Team Providers Care Kindergarten Paraprofessional Name Role Phone Florina Marshall [facility] Primary Care Provider [phone] Encounter Details Date Type Department Care Team (Late st Contact Info) Description 07/22/2022 Orders Only [facility] MEDICINE 230 [place], [place] [phone] Christin Payan LPN Social History Tobacco Use Types Packs/Day [...] on filedocumented in this encounter Care Teams Kindergarten Paraprofessional Relationship Specialty Start Date End Date Florina MarshallKATHRINE [address] [place] [address] PCP - General Family Medicine 02/27/21 documented as of this encounter
--- OUTSIDE RECORDS SUMMARY | 2024-07-14 11:54 | XMS_ITS | Encounter Summary ---
Author Organization [facility] [employer] Address [address] [place] [address] 7t [place] [address] Care Team Providers Care Gaming Investigator Name Role Phone Florina Marshall Primary Care Provider [phone] Reason for Referral * Imaging (Routine) - Authorized Specialty Diagnoses / Procedures Referred By Patrick rodriguez Referred To Contact Radiology Diagnoses Neck mass Procedures CT Soft Tissue Neck w/ Contrast Florina Marshall FNP [address] [place] [address] Phone: tel: fax: [address] Phone: tel: fax: Referral ID Status Reason Start Date Expiration Date V isits Requested Visits Authorized [id number] Authorized 06/22/2024 06/22/2025 1 1 Encounter Details Date Type Department Care Team ([facility] st Contact Info) Description 06/22/2024 Orders Only [facility] [address] [place] [address] [phone] Florina Marshall FNP [address] [place], [place] [phone] Neck mass (Primary Dx) Social History Tobacco Use Types [...] AM EDT documented as of this encounter Progress Notes * KATHRINE Christian - 06/22/2024 4:59 PM EST Outgoing call to patient to advise of ultrasound results-complex cystic mass. Will order neck CT with contrast for further eval. Patient advised. documented in this encounter Plan of Treatment Scheduled Orders Name Type Priority Associated Diagnoses Orde r Schedule CT Soft Tissue Neck w/ Contrast Imaging Routine Neck mass Expected: 06/22/2024, Expires: 06/22/2025 documented as of this encounter Visit Diagnoses Diagnosis Neck mass- Primary Swelling, mass, or lump in head and neck documented in this encounter Additional Health Concerns Assessment Noted Time PHQ-9 Depression Total Score: 0 10/16/19 24 9:50 AM EDT documented as of this encounter Care Teams Gaming Investigator Relationship Specialty Start Date End Date Florina Marshall FNP [address] [place] [address] PCP - General Family Medicine 02/27/21 documented as of this encounter
--- OUTSIDE RECORDS SUMMARY | 2024-07-14 11:54 | XMS_ITS | Encounter Summary ---
Author Organization [employer] Address 75 [facility] 7t [place] [address] Care Team Providers Care Operational Intelligence Officer Name Role Phone Florina Marshall [facility] Primary Care Provider [phone] Encounter Details Date Type Department Care Team (Late st Contact Info) Description 06/30/2022 Orders Only [facility] MED & PEDS [address] [place] [address] Tina Husain LPN Social History Tobacco Use [...] on filedocumented in this encounter Care Teams Operational Intelligence Officer Relationship Specialty Start Date End Date Rolando KATHRINE Heaton [address] [place] [address] PCP - General Family Medicine 02/27/21 documented as of this encounter
--- OUTSIDE RECORDS SUMMARY | 2024-07-14 11:54 | XMS_ITS | Encounter Summary ---
Author Organization [employer] Address 75 [facility] 7t [place] [address] Care Team Providers Care Sheet Combining Operator Name Role Phone Florina aMrshall [facility] Primary Care Provider Reason for Visit * Reason Onset Date Comments Call Back Request 06/14/2024 Encounter Details Date Type Department Care Team ([facility] st Contact Info) Description 06/14/2024 Telephone [facility] MED[facility] 230 [place] [address] [facility] 230 [place] [address] Call Back Request Social History Tobacco Use Types Packs/Day Years [...] encounter Miscellaneous Notes * Telephone Encounter - Gabriela Heard RN - 06/15/2024 12:57 PM EST TC placed to patient [phone] in regards to below message. Patient verbalized understanding andis aware he will be contacted with results once available. Patient to f/u PRN. * Telephone Encounter - Gabriela Heard RN - 06/14/2024 11:34 AM EST TC placed to patient [phone] in regards to below. Patient reports PCP advised him he would need to repeat his LFT's in 8 weeks. BW performed last on 04/20/24 and LFT's were elevated. Please advise if this the correct POC and place BW orders if so. Thank you! * Telephone Encounter - Lauren Bradford - 06/14/2024 10:47 AM EST Tc from pt requesting telehealth visit as casualty underwriter notify theres no availability , pt is requesting acallback as he's requesting lab orders but will like to speak to nurse or provider Callback number [phone] documented in this encounter Plan of Treatment Not on file documented as of this encounter Visit Diagnoses Not on filedocumented in this encounter Additional Health Concerns Assessment Noted Time PHQ-9 Depression Total Score: 0 10/16/19 24 9:50 AM EDT documented as of this encounter Care Teams Sheet Combining Operator Relationship Specialty Start Date End Date Florina Marshall FNP [address] [place] [address] PCP - General Family Medicine 02/27/21 documented as of this encounter
--- OUTSIDE RECORDS SUMMARY | 2024-07-14 11:54 | XMS_ITS | Encounter Summary ---
Author Organization [employer] Address 75 [facility] 7t [place] [address] Care Team Providers Care Commercial Credit Officer Name Role Phone Florina Marshall [facility] Primary Care Provider [phone] Encounter Details Date Type Department Care Team (Late st Contact Info) Description 02/03/2023 Orders Only [facility] MED & PEDS [address] [place] [address] Tina Husain LPN Social History Tobacco Use [...] on filedocumented in this encounter Care Teams Commercial Credit Officer Relationship Specialty Start Date End Date Rolando KATHRINE Heaton [address] [place] [address] PCP - General Family Medicine 02/27/21 documented as of this encounter
--- OUTSIDE RECORDS SUMMARY | 2024-07-14 11:54 | XMS_ITS | Encounter Summary ---
Author Organization [employer] Address 75 [facility] 7t [place] [address] Care Team Providers Care Home Attendant Name Role Phone Florina Marshall [facility] Primary Care Provider [phone] Reason for Visit * Reason Onset Date Comments Results 04/21/2024 Encounter Details Date Type Department Care Team ([facility] st Contact Info) Description 04/21/2024 Telephone [facility] MEDIC[facility] [address] [place] [address] [facility] [address] [place] [address] Results Social History Tobacco Use Types Packs/Day [...] encounter Miscellaneous Notes * Telephone Encounter - Lavonne Moreno - 04/21/2024 11:31 AM EST TC from pt requesting call back regarding Results. Type of results:labs Date when done: 04/20/24 Facility: [facility] documented in this encounter Plan of Treatment Not on file documented as of this encounter Visit Diagnoses Not on filedocumented in this encounter Additional Health Concerns Assessment Noted Time PHQ-9 Depression Total Score: 0 10/16/19 9:50 AM EDT documented as of this encounter Care Teams Home Attendant Relationship Specialty Start Date End Date Florina Marshall FNP [address] [place] [address] PCP - General Family Medicine 02/27/21 documented as of this encounter
--- OUTSIDE RECORDS SUMMARY | 2024-07-14 11:54 | XMS_ITS | Encounter Summary ---
Author Organization [employer] Address [address] [facility] [address] 7t [place] [address] Care Team Providers Care Manager Multimedia Name Role Phone Rolando [facility] Primary Care Provider [phone] Reason for Visit * Reason Onset Date Comments Med Refill 02/18/2024 Encounter Details Date Type Department Care Team (Late st Contact Info) Description 02/18/2024 Refill [facility] MED & PEDS [address] [place], [place] [phone] [place] [facility] [address] [place] [address] Social History Tobacco Use Types Packs/Day Years [...] Recorded Patient Health Questionnaire-2 Score 0 10/16/2023 Sex and Gender Information Value Date Recorded [...] documented as of this encounter Care Teams Manager Multimedia Relationship Specialty Start Date End Date Florina Marshall FNP [address] [place] [address] PCP - General Family Medicine 02/27/21 documented as of this encounter
--- OUTSIDE RECORDS SUMMARY | 2024-07-14 11:54 | XMS_ITS | Encounter Summary ---
Author Organization [employer] Address [address] [facility] [address]t [place] [address] Care Team Providers Care Sweater Designer Name Role Phone Florina Marshall [facility] Primary Care Provider [phone] Encounter Details Date Type Department Care Team (Late st Contact Info) Description 06/15/2024 Orders Only [facility] [address] [place], [place] [phone] [facility] [address] [place] [address] Mixed hyperlipidemia (Primary Dx) Social History Tobacco Use Types [...] on file documented as of this encounter Procedures Procedure Name Priority Date/Time Associated Diagnosis Comments HEPATIC FUNCTION PANEL Routine 06/16/2024 8:59 AM EST Mixed hyperlipidemia documented in this encounter Results * (ABNORMAL) Hepatic Function Panel (06/16/2024 8:59 AM EST) Bilirubin, Total 0.7 0.0 - 1.0 mg/dL [facility] Bilirubin, Direct 0.3 0.0 - 0.5 mg/dL [facility] Aspartate Amino Transferase 39(H) 5 - 37 U/L [facility] Alanine Aminotransferase 41(H) 0 - 40 U/L [facility] Total Protein 7.9 6.5 - 8.0 g/dL [facility] Albumin Level 4.3 3.5 - 5.0 g/dL [facility] Alkaline Phosphatase 33(L) 39 - 117 U/L [facility] Blood Venous blood specimen / Unknown 06/16/2024 8:59 AM EST 06/16/2024 11:12 AM EST [facility] LAB BLOOD ORDERABLES Final Re sult [facility] [address] [place] [address] [phone] documented in this encounter Visit Diagnoses Diagnosis Mixed hyperlipidemia- Primary documented in this encounter Additional Health Concerns Assessment Noted Time PHQ-9 Depression Total Score: 0 10/16/19 24 9:50 AM EDT documented as of this encounter Care Teams Sweater Designer Relationship Specialty Start Date End Date Florina Marshall FNP [address] [place] [address] PCP - General Family Medicine 02/27/21 documented as of this encounter
--- OUTSIDE RECORDS SUMMARY | 2024-07-14 11:54 | XMS_ITS | Encounter Summary ---
Author Organization [employer] Address 75 [facility] 7t [place] [address] Care Team Providers Care Caser In Name Role Phone Florina Marshall [facility] Primary Care Provider [phone] Reason for Visit * Reason Onset Date Comments Med Refill 02/28/2024 Encounter Details Date Type Department Care Team ([facility] st Contact Info) Description 02/28/2024 Refill [facility] MED[facility] [address] [place] [address] [facility] [address] [place] [address] Seasonal allergies Social History Tobacco Use Types Packs/Day Years [...] as of this encounter Visit Diagnoses Diagnosis Seasonal allergies Allergic rhinitis, cause unspecified documented in this encounter Additional Health Concerns Assessment Noted Time PHQ-9 Depression Total Score: 0 10/16/19 24 9:50 AM EDT documented as of this encounter Care Teams Caser In Relationship Specialty Start Date End Date Florina Marshall FNP [address] [place] [address] PCP - General Family Medicine 02/27/21 documented as of this encounter
== END 2024-07-14 11:17 | disposition home or self-care (01) ==
LOC: HO.US 11:16
PROVIDERS: PCP Nurse Practitioner Primary Care; Visit Provider Registered Nurse
DX: R74.8 Abnormal levels of other serum enzymes (principal)
CPT/HCPCS: 76705

== ENCOUNTER → 2024-07-14 11:19 | Outpatient (BNV) | payer MEDICAID, SELFPAY | PROVIDERS: PCP Nurse Practitioner Primary Care; Visit Provider Specialist | DX: K75.81 Nonalcoholic steatohepatitis (NASH) (principal) | CPT/HCPCS: 76705 ==

== ENCOUNTER 2024-08-18 09:53 | Outpatient (REF) | payer MEDICAID, SELFPAY ==
--- NOTE | ~2024-08-18 | CT_ITS ---
EXAMINATION: CT SOFT TISSUE NECK WITH CONTRAST CLINICAL INFORMATION: Thyroglossal duct cyst. COMPARISON: Correlated to Limited ultrasound and soft tissue neck dated April 26, 2024. TECHNIQUE: Following the intravenous administration of 60 mL of Omnipaque 350 intravenous contrast, helical imaging was performed in the axial plane with generation of coronal and sagittal reformatted images. This CT examination was performed using dose optimization techniques as appropriate, variously including the following: *Automated exposure control *Adjustment of mA and/or kV according to patient size (this includes techniques or standardized protocols for targeted exams where dose is matched to indication/reason for exam; i.e. extremities or head) *Use of iterative reconstruction technique. DLP: 383 mGy centimeter. FINDINGS: There is a well-defined, 15 x 10 x 21 mm lobulated isodensity in the left midline of the larynx inferior to the anterior hyoid bone and above the thyroid cartilage likely thyrohyoid membrane with slight extension to the anterior commissure of the thyroid cartilage. No osteolysis. No calcific components. There is a measurement of 52 Hounsfield units. I do not see enhancement. Skull base, nasopharynx, retropharynx, oropharynx, hypopharynx demonstrated no masses or fluid collections. Secretions in the vallecula. Prominent palatine tonsils. Manager [employer] spaces, parapharyngeal spaces and carotid compartments demonstrated no masses or fluid collections. The salivary glands demonstrated no sialolithiasis or enhancing lesion. Bilateral, numerous, different sizes prominent lymph nodes throughout the soft tissue neck. The thyroid gland is not enlarged. Questionable 10 mm low density in the inferior left thyroid lobe. There is a subtle mosaic pattern in the included lungs. There is mild spondylosis C5-6. No air-fluid levels in the included paranasal sinuses. Tympanic cavities and mastoid air cells are aerated. Calcified plaques in the cavernous supraclinoid segments of the ICAs. 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 Nonspecific bilateral prominent cervical lymph nodes. Prominent palatine tonsils. Electronically signed by: Gian Grant MD 08/18/2024 12:40 PM EDT
[2024-08-18] MEDS: iohexoL 350 MG/ML 100 ML INFUS..BTL IV (10:42)
--- OUTSIDE RECORDS SUMMARY | 2024-08-18 11:00 | XMS_ITS | Encounter Summary ---
Author Organization [employer] Address 75 [facility] 7t [place] [address] Care Team Providers Care Technical Sales Director Name Role Phone Florina Marshall [facility] Primary Care Provider Reason for Visit * Reason Onset Date Comments Med Refill 02/28/2024 Encounter Details Date Type Department Care Team ([facility] st Contact Info) Description 02/28/2024 Refill [facility] [address] [place] [address] [facility] [address] [place] [address] Seasonal allergies Social History Tobacco Use Types [...] as of this encounter Plan of Treatment Upcoming Encounters Date Type Department Care Team (Late st Contact Info) Description 10/19/2024 10:15 AM EDT Office Visit [facility] [address] [place] [address] Florina Marshall FNP [address] [place] [address] documented as of this encounter Visit Diagnoses Diagnosis Seasonal allergies Allergic rhinitis, cause unspecified documented in this encounter Additional Health Concerns Assessment Noted Time PHQ-9 Depression Total Score: 0 10/16/19 24 9:50 AM EDT documented as of this encounter Care Teams Technical Sales Director Relationship Specialty Start Date End Date Florina Marshall FNP [address] [place] [address] PCP - General Family Medicine 02/27/21 documented as of this encounter
--- OUTSIDE RECORDS SUMMARY | 2024-08-18 11:00 | XMS_ITS | Encounter Summary ---
Author Organization [employer] Address 75 [facility] 7t [place] [address] Care Team Providers Care V Belt Mold Assembler And Curer Name Role Phone Florina Marshall [facility] Primary Care Provider [phone] Reason for Visit * Reason Onset Date Comments Med Refill 08/11/2024 Encounter Details Date Type Department Care Team ([facility] st Contact Info) Description 08/11/2024 Refill [facility] [address] [place] [address] [facility] 230 [place] [address] Seasonal allergies Social History Tobacco Use Types [...] Description 10/19/2024 10:15 AM EDT Office Visit [facility] [address] [place] [address] [place] [facility] [address] [place] [address] documented as of this encounter Visit Diagnoses Diagnosis Seasonal allergies Allergic rhinitis, cause unspecified documented in this encounter Additional Health Concerns Assessment Noted Time PHQ-9 Depression Total Score: 0 10/16/19 24 9:50 AM EDT documented as of this encounter Care Teams V Belt Mold Assembler And Curer Relationship Specialty Start Date End Date Florina Marshall FNP [address] [place] [address] PCP - General Family Medicine 02/27/21 documented as of this encounter
--- OUTSIDE RECORDS SUMMARY | 2024-08-18 11:00 | XMS_ITS | Encounter Summary ---
Author Organization [employer] Address 75 [facility] 7t [place] [address] Care Team Providers Care Moisture Meter Reader Name Role Phone Florina Marshall [facility] Primary Care Provider [phone] Reason for Visit * Reason Onset Date Comments Results 04/21/2024 Encounter Details Date Type Department Care Team ([facility] st Contact Info) Description 04/21/2024 Telephone [facility] MEDICINE [address] [place] [address] [facility] [address] [place] [address] Results Social History Tobacco Use Types Packs/Day [...] of results:labs Date when done: 04/20/24 Facility: [facility] documented in this encounter Plan of Treatment Upcoming Encounters Date Type Department Care Team (Late st Contact Info) Description 10/19/2024 10:15 AM EDT Office Visit [facility] MEDICINE [address] [place] [address] Florina Marshall FNP [address] [place] [address] documented as of this encounter Visit Diagnoses Not on filedocumented in this encounter Additional Health Concerns Assessment Noted Time PHQ-9 Depression Total Score: 0 10/16/19 9:50 AM EDT documented as of this encounter Care Teams Moisture Meter Reader Relationship Specialty Start Date End Date Florina Marshall FNP [address] [place] [address] PCP - General Family Medicine 02/27/21 documented as of this encounter
--- OUTSIDE RECORDS SUMMARY | 2024-08-18 11:00 | XMS_ITS | Encounter Summary ---
Author Organization [employer] Address [address] [facility] [address] 7t [place] [address] Care Team Providers Care Cartridge Loading Operator Name Role Phone Rolando [facility] Primary Care Provider [phone] Reason for Visit * Reason Onset Date Comments Med Refill 04/18/2024 Encounter Details Date Type Department Care Team (Late st Contact Info) Description 04/18/2024 Refill [facility] MED & PEDS [address] [place], [place] [phone] [place] [facility] [address] [place] [address] Essential hypertension Social History Tobacco Use Types [...] Description 10/19/2024 10:15 AM EDT Office Visit [facility] MEDICINE [address] [place] [address] [place] [facility] [address] [place] [address] documented as of this encounter Visit Diagnoses Diagnosis Essential hypertension Unspecified essential hypertension documented in this encounter Additional Health Concerns Assessment Noted Time PHQ-9 Depression Total Score: 0 10/16/19 24 9:50 AM EDT documented as of this encounter Care Teams Cartridge Loading Operator Relationship Specialty Start Date End Date Florina Marshall FNP [address] [place] [address] PCP - General Family Medicine 02/27/21 documented as of this encounter
--- OUTSIDE RECORDS SUMMARY | 2024-08-18 11:00 | XMS_ITS | Encounter Summary ---
Author Organization [employer] Address [address] [facility] 7t [place] [address] Care Team Providers Care Corduroy Cutting Supervisor Name Role Phone Rolando Florina CHISHOLM Primary Care Provider [phone] Encounter Details Date Type Department Care Team (Late st Contact Info) Description 06/30/2022 Orders Only [facility] CHC MED & PEDS [address] [place] [address] Tina Husain LPN Social History Tobacco Use [...] Description 10/19/2024 10:15 AM EDT Office Visit [facility] MEDICINE [address] [place] [address] Florina Marshall FNP [address] [place] [address] documented as of this encounter Visit Diagnoses Not on filedocumented in this encounter Care Teams Corduroy Cutting Supervisor Relationship Specialty Start Date End Date Florina Marshall FNP [address] [place] [address] PCP - General Family Medicine 02/27/21 documented as of this encounter
--- OUTSIDE RECORDS SUMMARY | 2024-08-18 11:00 | XMS_ITS | Encounter Summary ---
Author Organization [employer] Address [address] [facility] [address] [place] [address] Care Team Providers Care Solution Advisor Name Role Phone Rolando [facility] Primary Care Provider [phone] Reason for Visit * Reason Comments Med Refill Encounter Details Date Type Department Care Team (Late st Contact Info) Description 08/15/[address] [facility] CHC MED & PEDS [address] [place], [place] [phone] Rolando [facility] [address] [place] [address] Social History Tobacco Use Types Packs/Day Years [...] Description 10/19/2024 10:15 AM EDT Office Visit [facility] MEDICINE [address] [place] [address] Florina Marshall FNP [address] [place] [address] documented as of this encounter Visit Diagnoses Not on filedocumented in this encounter Additional Health Concerns Assessment Noted Time PHQ-9 Depression Total Score: 0 10/16/19 24 9:50 AM EDT documented as of this encounter Care Teams Solution Advisor Relationship Specialty Start Date End Date Florina Marshall FNP [address] [place] [address] PCP - General Family Medicine 02/27/21 documented as of this encounter
--- OUTSIDE RECORDS SUMMARY | 2024-08-18 11:00 | XMS_ITS | Encounter Summary ---
Author Organization [employer] Address [address] 7[address] [place] [address] Care Team Providers Care Wheel Borer Name Role Phone Rolando [facility] Primary Care Provider [phone] Reason for Visit * Reason Onset Date Comments Med Refill 02/18/2024 Encounter Details Date Type Department Care Team (Late st Contact Info) Description 02/18/2024 Refill [facility] MED & PEDS [address] [place], [place] [phone] [facility] [address] [place] [address] Social History Tobacco Use Types Packs/Day Years [...] Description 10/19/2024 10:15 AM EDT Office Visit [facility] MEDICINE 230 [place] [address] Florina Marshall FNP [address] [place] [address] documented as of this encounter Visit Diagnoses Not on filedocumented in this encounter Additional Health Concerns Assessment Noted Time PHQ-9 Depression Total Score: 0 10/16/19 24 9:50 AM EDT documented as of this encounter Care Teams Wheel Borer Relationship Specialty Start Date End Date Florina Marshall FNP [address] [place] [address] PCP - General Family Medicine 02/27/21 documented as of this encounter
--- OUTSIDE RECORDS SUMMARY | 2024-08-18 11:00 | XMS_ITS | Encounter Summary ---
Author Organization [employer] Address [address] [facility] 7t [place] [address] Care Team Providers Care Sba Business Development Officer Name Role Phone Rolando Florina CHISHOLM Primary Care Provider [phone] Encounter Details Date Type Department Care Team (Late st Contact Info) Description 04/07/2023 Orders Only [facility] CHC MED & PEDS [address] [place] [address] Tina Husain LPN Social History Tobacco Use [...] Description 10/19/2024 10:15 AM EDT Office Visit [facility] MEDICINE [address] [place] [address] Florina Marshall FNP [address] [place] [address] documented as of this encounter Visit Diagnoses Not on filedocumented in this encounter Care Teams Sba Business Development Officer Relationship Specialty Start Date End Date Florina Marshall FNP [address] [place] [address] PCP - General Family Medicine 02/27/21 documented as of this encounter
--- OUTSIDE RECORDS SUMMARY | 2024-08-18 11:00 | XMS_ITS | Encounter Summary ---
Author Organization [employer] Address [address] [facility] 7t [place] [address] Care Team Providers Care Looseleaf Binder Coverer Name Role Phone Florina Marshall [facility] Primary Care Provider [phone] Reason for Visit * Reason Onset Date Comments Med Refill 04/18/2024 Encounter Details Date Type Department Care Team ([facility] st Contact Info) Description 04/18/2024 Refill [facility] MEDICINE [address] [place] [address] [facility] [address] [place] [address] Social History Tobacco Use Types Packs/Day Years [...] 10:15 AM EDT Office Visit [facility] MEDICINE [address] [place] [address] ObionFlorina [facility] [address] [place] [address] documented as of this encounter Visit Diagnoses Not on filedocumented in this encounter Additional Health Concerns Assessment Noted Time PHQ-9 Depression Total Score: 0 10/16/19 24 9:50 AM EDT documented as of this encounter Care Teams Looseleaf Binder Coverer Relationship Specialty Start Date End Date Florina Marshall FNP [address] [place] [address] PCP - General Family Medicine 02/27/21 documented as of this encounter
--- OUTSIDE RECORDS SUMMARY | 2024-08-18 11:01 | XMS_ITS | Encounter Summary ---
Author Organization [employer] Address [address] [facility] 7[address] [place] [address] Care Team Providers Care Zipper Machine Operator Name Role Phone Florina Marshall [facility] Primary Care Provider [phone] Reason for Visit * Reason Onset Date Comments Results 07/19/2024 Encounter Details Date Type Department Care Team ([facility] st Contact Info) Description 07/19/2024 Telephone [facility] [address] [place] [address] [facility] [address] [place] [address] Results Social History Tobacco Use Types Packs/Day [...] Telephone Encounter - Gabriela Heard RN - 07/20/2024 10:46 AM EST TC placed to patient [phone] in regards to below message. Patient reports he is not sure why he has fatty liver because he has been on a strict diet for 3 years. Patient also reports he has decreased his alcohol intake already, last year he reports he did consume more alcohol however he does not feel one year of alcohol consumption would cause his fatty liver. Patient reports he researched online and found it may be due to pharmaceuticals. Patient reports per his research lisinopril and rosuvastatin can both impact his liver functioning. Patient reports he has chosen to self discontinue both of these medications in 05/2024. Patient reports the only medication he is currently taking is h ydrochlorothiazide 25mg which he would like to wean himself off of as well. Patient reports he has been checking his BP daily and it always ranges in the 120/80 range. Patient has also reports he hadCOVID approximately 1 year ago and had a liver issue and is wondering if it is related to this aswell. Patient scheduled for TV with PCP for further discussion on 07/22/24 at 9:30am. Patient agreed to appointment date and time. * Telephone Encounter - Kian Stinson - 07/20/2024 10:12 AM EST Pt returning call * Telephone Encounter - Gabriela Heard RN - 07/20/2024 9:32 AM EST TC x3 placed to patient [phone] in regards to below message. Patient did not answer, RN left requesting CB to red team nurses. RN will send letter to address on file. Patient to f/u PRN. ----- Message from [facility] sent at 07/17/2024 2:13 PM EST ----- Please advise patient that abdominal ultrasound confirmed the presence of mild fatty liver as suspected. We will continue to focus on weight loss and avoiding alcohol as previously discussed. Thank you! Also do mind checking on the status of the neck CT? * Telephone Encounter - Gabriela Heard RN - 07/19/2024 2:22 PM EST TC x2 placed to patient [phone] in regards to below message. Patient did not answer, RN left requesting CB to red team nurses. RN will re-attempt in AM. ----- Message from [facility] sent at 07/17/2024 2:13 PM EST ----- Please advise patient that abdominal ultrasound confirmed the presence of mild fatty liver as suspected. We will continue to focus on weight loss and avoiding alcohol as previously discussed. Thank you! Also do mind checking on the status of the neck CT? * Telephone Encounter - Chris Llanes - 07/19/2024 11:23 AM EST Tc from pt returning call regarding prior message. Contact pt at [phone] * Telephone Encounter - Gabriela Heard RN - 07/19/2024 9:52 AM EST TC placed to patient [phone] in regards to below message. Patient did not answer, RN left requesting CB to red team nurses. RN will re-attempt in PM. ----- Message from Florina Tavernier sent at 07/17/2024 2:13 PM EST ----- Please advise patient that abdominal ultrasound confirmed the presence of mild fatty liver as suspected. We will continue to focus on weight loss and avoiding alcohol as previously discussed. Thank you! Also do mind checking on the status of the neck CT? documented in this encounter Plan of Treatment Upcoming Encounters Date Type Department Care Team (Late st Contact Info) Description 10/19/2024 10:15 AM EDT [facility] [address] [place] [address] Florina Marshall FNP [address] [place] [address] documented as of this encounter Visit Diagnoses Not on filedocumented in this encounter Additional Health Concerns Assessment Noted Time PHQ-9 Depression Total Score: 0 10/16/19 24 9:50 AM EDT documented as of this encounter Care Teams Zipper Machine Operator Relationship Specialty Start Date End Date Florina Marshall FNP [address] [place] [address] PCP - General Family Medicine 02/27/21 documented as of this encounter
--- OUTSIDE RECORDS SUMMARY | 2024-08-18 11:01 | XMS_ITS | Encounter Summary ---
Author Organization [employer] Address [address] [facility] 7t [place] [address] Care Team Providers Care Rn Procedures Name Role Phone Florina Marshall [facility] Primary Care Provider [phone] Reason for Visit * Reason Comments televisit Encounter Details Date Type Department Care Team (Late st Contact Info) Description 07/22/2024 9:30 AM EST Telemedicine [facility] MEDICINE [address] [place] [address] [facility] [address] [place] [address] Essential hypertension (Primary Dx); Mixed hyperlipidemia; Hepatic steatosis; Dietary counseling; Exercise counseling Social History Tobacco Use Types Packs/Day Years [...] as of this encounter Progress Notes * [facility], [facility] - 07/22/2024 9:30 AM EST SUBJECTIVE: Alec Acosta is a 48 y.o. year old male with HTN, hx of TUD, HLD, and depression who presents via telehealth to discuss elevated liver enzymes. Denies recent illness, injury, or hospitalization. HPI -Patient with history of persistent mild ALT/AST elevation. Abdominal ultrasound from 07/14/2024 with evidence of hepatic steatosis. Hepatitis panel negative. -Today patient reports he self discontinued rosuvastatin and lisinopril due to elevated liver enzyme concerns. After stopping the statin he also noted that his previous abdominal symptoms (bloating) fully resolved. He has been checking his blood pressure and readings have remained well-controlled. He has also stopped EtOH since April and is focusing on diet and exercise. Requesting to reduce and/or discontinue hydrochlorothiazide Home BP readings: 130/73 119/73 128/82 119/86 Aspartate Amino Transferase Date Value Ref Range Status 06/16/2024 39 (H) 5 - 37 U/L Final 04/20/2024 99 (H) 5 - 37 U/L Final 08/11/2023 20 5 - 37 U/L Final ALT Date Value Ref Range Status 08/29/2020 19 9 - 46 U/L Final Alanine Aminotransferase Date Value Ref Range Status 06/16/2024 41 (H) 0 - 40 U/L Final 04/20/2024 65 (H) 0 - 40 U/L Final 08/11/2023 21 0 - 40 U/L Final Social History Social History Narrative Tobacco Use: Former. Quit 2021. ETOH: None Marijuana Use: None Other substance use: None Current living environment: Lives with sherwin Children: 0 Employment/education: Manager [employer] Sexually active: yes Partners are: AF[employer] Patient Active Problem List Diagnosis Essential hypertension Healthcare maintenance History of tobacco use disorder Mixed hyperlipidemia Milia of eyelid of left eye Tinnitus Elevated blood pressure reading Plantar fasciitis Chronic pain No past surgical history on file. No family history on file. Review of Systems Constitutional: Negative for activity change, diaphoresis, fatigue, fever and unexpected weight change. Eyes: Negative for visual disturbance. Respiratory: Negative for apnea, cough, chest tightness and shortness of breath. Cardiovascular: Negative for chest pain, palpitations and leg swelling. Gastrointestinal: Negative for abdominal pain and nausea. Neurological: Negative for dizziness, syncope, light-headedness and headaches. OBJECTIVE: There were no vitals filed for this visit. Physical Exam Psychiatric: Mood and Affect: Mood normal. Behavior: Behavior normal. ASSESSMENT/PLAN The 10-year ASCVD risk score (Sid NICHOLSON, et al., 2019) is: 2% Values used to calculate the score: Age: 48 years Sex: Male Is Non- : No Diabetic: No Tobacco smoker: No Systolic Blood Pressure: 136 mmHg Is BP treated: Yes HDL Cholesterol: 51 mg/dL Total Cholesterol: 134 mg/dL - BP improving with diet, exercise changes. Shared decision making with patient. Okay to trial discontinuing hydrochlorothiazide and checking blood pressure daily. If BP is greater than 140/90 okay to restart HCTZ at one half tab (12.5 mg). -Given GI symptoms with rosuvastatin we will hold off on restarting statin. ASCVD score less than 5%. Will recheck fasting lipid panel and hepatic function at follow-up. Discussed that elevated liverenzymes may improve with discontinuing statin, however I suspect this mild chronic elevation is dueto hepatic steatosis which patient will continue to focus on weight loss to manage. Diagnosis Plan 1. Essential hypertension 2. Mixed hyperlipidemia 3. Hepatic steatosis Follow Up: 3 months HTN Current Outpatient Medications on File Prior to Visit Medication Sig Dispense Refill cetirizine (ZyrTEC) 10 MG tablet TAKE 1 TABLET BY MOUTH ONCE DAILY 90 tablet 1 hydroCHLOROthiazide (HYDRODiuril) 25 MG tablet TAKE 1 TABLET BY MOUTH EVERY DAY 90 tablet 1 lisinopril 10 MG tablet TAKE 1 TABLET BY MOUTH EVERY DAY 90 tablet 3 rosuvastatin (Crestor) 20 MG tablet Take 1 tablet (20 mg) by mouth Once per day. 90 tablet 0 triamcinolone (Kenalog) 0.1 % ointment Apply topically 2 times daily. 15 g 2 No current facility-administered medications on file prior to visit. documented in this encounter Plan of Treatment Upcoming Encounters Date Type Department Care Team (Late st Contact Info) Description 10/19/2024 10:15 AM EDT Office Visit [facility] MEDICINE [address] [place] [address] Florina Marshall FNP [address] [place] [address] documented as of this encounter Visit Diagnoses Diagnosis Essential hypertension- Primary Unspecified essential hypertension Mixed hyperlipidemia Hepatic steatosis Other chronic nonalcoholic liver disease Dietary counseling Dietary surveillance and counseling Exercise counseling documented in this encounter Additional Health Concerns Assessment Noted Time PHQ-9 Depression Total Score: 0 10/16/19 24 9:50 AM EDT documented as of this encounter Care Teams Rn Procedures Relationship Specialty Start Date End Date Florina Marshall FNP [address] [place] [address] PCP - General Family Medicine 02/27/21 documented as of this encounter
--- OUTSIDE RECORDS SUMMARY | 2024-08-18 11:01 | XMS_ITS | Encounter Summary ---
Author Organization [employer] [facility] [employer] Address [address] [facility] [address]t [place] [address] Care Team Providers Care Leather Etcher Name Role Phone Florina Marshall [facility] Primary Care Provider [phone] Encounter Details Date Type Department Care Team (Late st Contact Info) Description 08/12/2024 Population Health Risk Score [facility] ([facility] Department [address] [facility] [address] [place] [id number] Provider, Population Health Generic Social History Tobacco Use Types Packs/Day Years [...] Description 10/19/2024 10:15 AM EDT Office Visit [facility] MEDICINE [address] [place] [address] Florina Marshall FNP [address] [place] [address] documented as of this encounter Visit Diagnoses Not on filedocumented in this encounter Additional Health Concerns Assessment Noted Time PHQ-9 Depression Total Score: 0 10/16/19 24 9:50 AM EDT documented as of this encounter Care Teams Leather Etcher Relationship Specialty Start Date End Date Florina Marshall FNP [address] [place] [address] PCP - General Family Medicine 02/27/21 documented as of this encounter
--- OUTSIDE RECORDS SUMMARY | 2024-08-18 11:01 | XMS_ITS | Encounter Summary ---
Author Organization [facility] [employer] Address [address] [place] [address] 7 [place] [address] Care Team Providers Care Title One Teacher Name Role Phone Florina Marshall RADIOLOGY TECHNICIAN Primary Care Provider Encounter Details Date Type Department Care Team (Late st Contact Info) Description 07/22/2022 Orders Only [facility] MEDICINE [address] [place] [address] Christin Payan LPN Social History Tobacco Use [...] Description 10/19/2024 10:15 AM EDT Office Visit [facility] MEDICINE [address] [place] [address] Florina Marshall FNP [address] [place] [address] documented as of this encounter Visit Diagnoses Not on filedocumented in this encounter Care Teams Title One Teacher Relationship Specialty Start Date End Date Florina Marshall FNP [address] [place] [address] PCP - General Family Medicine 02/27/21 documented as of this encounter
--- OUTSIDE RECORDS SUMMARY | 2024-08-18 11:01 | XMS_ITS | Encounter Summary ---
Author Organization [employer] Address [address] [facility] 7t [place] [address] Care Team Providers Care Digital Community Manager Name Role Phone Florina Marshall [facility] Primary Care Provider [phone] Encounter Details Date Type Department Care Team (Latest Contact Info) Description 07/22/2024 Travel Social History Tobacco Use Types Packs/Day Years [...] Description 10/19/2024 10:15 AM EDT Office Visit [facility] MEDICINE [address] [place] [address] Florina Marshall FNP [address] [place] [address] documented as of this encounter Visit Diagnoses Not on filedocumented in this encounter Additional Health Concerns Assessment Noted Time PHQ-9 Depression Total Score: 0 10/16/19 24 9:50 AM EDT documented as of this encounter Care Teams Digital Community Manager Relationship Specialty Start Date End Date Florina Marshall FNP [address] [place] [address] PCP - General Family Medicine 02/27/21 documented as of this encounter
--- OUTSIDE RECORDS SUMMARY | 2024-08-18 11:01 | XMS_ITS | Encounter Summary ---
Author Organization [employer] Address [address] [facility] [address]t [place] [address] Care Team Providers Care Rolled Glass Crosscutter Name Role Phone Rolando Florina CHISHOLM Primary Care Provider [phone] Encounter Details Date Type Department Care Team (Late st Contact Info) Description 07/30/2022 Orders Only [facility] CHC MED & PEDS [address] [place] [address] Tina Husain LPN Social History Tobacco Use [...] Description 10/19/2024 10:15 AM EDT Office Visit [facility] MEDICINE [address] [place] [address] Florina Marshall FNP [address] [place] [address] documented as of this encounter Visit Diagnoses Not on filedocumented in this encounter Care Teams Rolled Glass Crosscutter Relationship Specialty Start Date End Date Florina Marshall FNP [address] [place] [address] PCP - General Family Medicine 02/27/21 documented as of this encounter
--- OUTSIDE RECORDS SUMMARY | 2024-08-18 11:01 | XMS_ITS | Encounter Summary ---
Author Organization [employer] Address [address] [facility] [address]t [place] [address] Care Team Providers Care Tire Fabricator Name Role Phone Rolando Florina CHISHOLM Primary Care Provider [phone] Encounter Details Date Type Department Care Team (Late st Contact Info) Description 02/03/2023 Orders Only [facility] CHC MED & PEDS [address] [place] [address] Tina Husain LPN Social History Tobacco Use [...] Description 10/19/2024 10:15 AM EDT Office Visit [facility] MEDICINE [address] [place] [address] Florina Marshall FNP [address] [place] [address] documented as of this encounter Visit Diagnoses Not on filedocumented in this encounter Care Teams Tire Fabricator Relationship Specialty Start Date End Date Florina Marshall FNP [address] [place] [address] PCP - General Family Medicine 02/27/21 documented as of this encounter
--- OUTSIDE RECORDS SUMMARY | 2024-08-18 11:01 | XMS_ITS | Clinical Summary ---
Author Organization [employer] Address 75 [facility] 7t [place] [address] Care Team Providers Care Levee Superintendent Name Role Phone Florina Marshall [facility] Primary Care Provider Allergies No known active allergies Medications cetirizine (ZyrTEC) 10 MG tabletIndication s:Seasonal allergies TAKE 1 TABLET BY MOUTH ONCE DAILY 90 tablet 1 11/22/19 24 Active triamcinolone (Kenalog) 0.1 % ointment Apply topically 2 times daily. 15 g 2 01/15/20 24 Active lisinopril 10 MG tablet TAKE 1 TABLET BY MOUTH EVERY DAY 90 tablet 3 01/25/20 24 Active hydroCHLOROthiaz arturo (HYDRODiuril) 25 MG tabletIndication s:Essential hypertension TAKE 1 TABLET BY MOUTH EVERY DAY 90 tablet 1 05/13/20 24 Active rosuvastatin (Crestor) 20 MG tablet TAKE 1 TABLET BY MOUTH EVERY DAY 90 tablet 1 08/16/19 25 Active rosuvastatin (Crestor) 20 MG tablet Take 1 tablet (20 mg) by mouth Once per day. 90 tablet 02/19/20 24 025 Discontinued Active Problems Problem Noted Date Diagnosed Date Hepatic steatosis 07/24/2024 Tinnitus 12/22/2023 Elevated blood pressure reading 12/22/2023 [...] annual eye exam so referred today to microfiche camera operator -no stye or michelle , no indication for ATB Essential hypertension [...] CT screen: Age 50 Vision Exam: Through [facility], [facility] Dental Care: [place] History of tobacco use disorder 08/10/2023 Overview (08/10/2023): Former Quit 2021 Assessment & Plan (08/12/2023 6:35 AM EDT): Congratulated patient Mixed hyperlipidemia 08/10/2023 Overview (08/10/2023): Rosuvastatin 20mg daily Assessment & Plan (08/12/2023 6:35 AM EDT): Well controlled Continue current regimen Encounters Date Type Department Care Team Description 08/15/2024 Refill [facility] MED & PEDS [address] [place] [address] [facility] 08/12/2024 Population Health Risk Score Community Care [facility] (C[facility]) Department [address] [place] [address] Provider, Population Health Generic 08/11/2024 Refill [facility] MEDICINE [address] [place] [address] Florina Marshall FNP Seasonal allergies 07/22/2024 9:30 AM EST Telemedicine [facility] [address] [place] [address] Florina Marshall, [facility] Essential hypertension (Primary Dx); Mixed hyperlipidemia; Hepatic steatosis; Dietary counseling; Exercise counseling 07/22/2024 Travel 07/19/[address] [address] Florina Marshall FNP Results 06/22/2024 Orders Only [facility] [address] [place] [address] Florina Marshall [facility] Neck mass (Primary Dx) 06/17/[address] [address] Belle Currie, RN Results 06/17/2024 Orders Only [facility] [address] [place] [phone] Florina Marshall FNP Elevated liver enzymes (Primary Dx) 06/15/2024 Orders Only [facility] [address] [place] [address] Florina Marshall [facility] Mixed hyperlipidemia (Primary Dx) 06/14/[address] [address] Florina Marshall FNP Call Back Request from Last 3 Months Immunizations Name Administration [...] 04/18/2024 1:07 PM EST Plan of Treatment Upcoming Encounters Date Type Department Care Team (Late st Contact Info) Description 10/19/2024 10:15 AM EDT Office Visit [facility] MED[facility] [address] [place], [place] [phone] RolandoFlorina, TRAINING ASSOCIATE [address] [place], [place] [phone] Health Maintenance Due Date Last Done Comments CT Colonography 1975 Colonoscopy 1975 FIT 1975 FOBT 1975 Sigmoidoscopy 1975 Family Planning (PISQ) 08/23/1990 Hepatitis A Vaccines (1 of 2 - Risk 2-dose series) 08/23/1994 Hepatitis B Vaccines (3 of 3 - 19+ 3-dose series) 05/07/2022 01/30/2022, 11/05/2021 COVID-19 Vaccine ( season) 2024 05/27/2021, 09/21/2020, 08/29/2020 Influenza Vaccine (#1) 2024 Depression Screening 10/15/2024 10/16/2023, 10/16/19 Alcohol/Substance Use Screening 07/22/2025 07/22/2024 SDOH Screening 07/22/2025 07/22/2024 Tobacco Screening 07/24/2025 07/24/2024 Zoster Vaccines (1 of 2) 08/23/2025 Colorectal Cancer Screening 08/26/2026 FIT DNA/Cologuard 08/26/2026 08/27/2023 DTaP/Tdap/Td Vaccines (2 - Td or Tdap) 04/20/2029 04/20/2019 Lipid Panel 04/20/2029 04/20/2024, 07/30, 05/02/2022, Additional history exists RSV Patients and [...] Procedure Name Priority Date/Time Associated Diagnosis Comments US ABDOMEN LIMITED Routine 07/15/2024 8: 31 AM EST Elevated liver enzymes HEPATIC FUNCTION PANEL Routine 06/16/2024 8:59 AM EST Mixed hyperlipidemia LIPID PANEL, STANDARD Routine 04/20/2024 8:40 AM EST Weight gain LAB COLOGUARD?? COLON CANCER SCREEN Routine 08/27/2023 8:04 AM EDT Encounter for screening for malignant neoplasm of colon ZZZ HISTORICAL HEPATITIS C AB W/REFL TO HCV RNA, QN, PCR Routine 10/30/2021 11:37 AM EDT HIV 1/2 ANTIGEN/ANTIBODY, FOURTH GENERATION W/RFL Routine 10/30/2021 11:37 AM EDT from Last 3 Months or Most Recently Relevant to Health Maintenance Results * US Abdomen Limited (07/15/2024 8:31 AM EST) Anatomical Region Laterality Modality Abdomen Ultrasound 07/15/2024 8:31 AM EST Narrative 07/15/2024 8:33 AM EST ? [facility] ?[address] ?[place] [address] ? Ultrasound Report ? Signed ? Patient: Dave,Alec P ?MR#: [id number] ?? 2 ? : 1975 ?Acct:[id number] ? Age/Sex: 48 / M ?ADM Date: 02/13/25 ? Loc: HO.US ? Attending Dr: Florina Marshall TRAINING ASSOCIATE ? Ordering Physician: Florina Marshall ?? Date of Service: 07/14/24 ?? Procedure(s): US abdomen limited ?? Accession Number(s): [id number] ? cc: VENKAT WATSON NP; Florina Marshall TRAINING ASSOCIATE ? CLINICAL HISTORY: liver enzyme elevation, suspected hepatic steatosis ? US abdomen limited ? Comparison: None ? Findings: ?? The visualized pancreas is normal. ?? The aorta and inferior vena cava are normal caliber. ? The appearance of the liver suggests fatty infiltration without focal ?? lesion. ?? There is no intrahepatic bile duct dilatation. ?? The common duct is 3.0 mm in diameter. ?? The gallbladder is normal. There is no sonographic Duran sign. ?? The main portal vein is antegrade. ? The right kidney is 13.6 cm in length. ?? No ascites. ? IMPRESSION: ?? 1. Hepatic steatosis. ? This document has been electronically signed by: Tamir Laguerre MD on ?? 07/15/2024 08:31:18 ? Dictated By: ?Tamir Laguerre MD ? Signed By: ?<Electronically signed by Tamir Laguerre MD in OV> ?07/15/24 0832 ? DD/ 0 ? TD/TT: 07/15/24830 ? Senior Environmental Scientist: ? Procedure Note Joshua, Kayla - 07/15/2024 [place] [address] Ultrasound Report Signed Patient: Alec Acosta PMR#: [id number] 2 : 1975Acct:[id number] Age/Sex: 48 / MADM Date: 07/14/24 Loc: HO.US Attending Dr: Florina CHISHOLM Ordering Physician: Florina Marshall Date of Service: 07/14/24 Procedure(s): US abdomen limited Accession Number(s): [id number] cc: VENKAT WATSON NP; Florina Marshall CLINICAL HISTORY: liver enzyme elevation, suspected hepatic steatosis US abdomen limited Comparison: None Findings: The visualized pancreas is normal. The aorta and inferior vena cava are normal caliber. The appearance of the liver suggests fatty infiltration without focal lesion. There is no intrahepatic bile duct dilatation. The common duct is 3.0 mm in diameter. The gallbladder is normal. There is no sonographic Duran sign. The main portal vein is antegrade. The right kidney is 13.6 cm in length. No ascites. IMPRESSION: 1. Hepatic steatosis. This document has been electronically signed by: Tamir Laguerre MD on 07/15/2024 08:31:18 Dictated By: Tamir Laguerre MD Signed By: <Electronically signed by Tamir Laguerre MD in OV> 07/15/24831 DD/ 0 TD/TT: 07/15/24830 Senior Environmental Scientist: [facility] IMG US PROCEDURES Edited Resu lt - Final * (ABNORMAL) Hepatic Function Panel (06/16/2024 8:59 AM EST) Bilirubin, Total 0.7 0.0 - 1.0 mg/dL [facility] Bilirubin, Direct 0.3 0.0 - 0.5 mg/dL [facility] Aspartate Amino Transferase 39(H) 5 - 37 U/L [facility] Alanine Aminotransferase 41(H) 0 - 40 U/L [facility] Total Protein 7.9 6.5 - 8.0 g/dL [facility] Albumin Level 4.3 3.5 - 5.0 g/dL [facility] Alkaline Phosphatase 33(L) 39 - 117 U/L [facility] Blood Venous blood specimen / Unknown 06/16/2024 8:59 AM EST 06/16/2024 11:12 AM EST [facility] LAB BLOOD ORDERABLES Final Re sult [facility] [address] [place] [address] [phone] * Lipid Panel, Standard (04/20/2024 8:40 AM EST) Triglycerides 144 <150 mg/dL [facility] Comment:Desirable Triglyceri de: less than 150 mg/dLBorderline High Triglyceride 150-199 mg/dLHigh Triglyceride: 200-499 mg/dLVery High Triglyceride: greater than or equal to 5OO mg/dL Cholesterol 134 <200 mg/dL [facility] Comment:Desirable Cholestero l: less than 200 mg/dLBorderline High Cholesterol: 200-239 mg/dLHigh Cholesterol: greater than 239 mg/dL LDL Cholesterol Calculated 55 <100 mg/dL [facility] Comment:Desirable LDL: less than 100 mg/dLNear Optimal/Above Optimal LDL: 110- 129 mg/dLBorderline High LDL: 130-159 mg/dLHigh LDL: 160-189 mg/dLVery High LDL: greater than or equal to 190 mg/dL HDL Cholesterol 51 >40 mg/dL [facility] Comment:Desirable HDL: great er than 40 mg/dL Note: This HDL assay may give artificially low results in patients with liver disease. Blood Venous blood specimen / Unknown 04/20/2024 8:40 AM EST 04/20/2024 11:22 AM EST [facility] LAB BLOOD ORDERABLES Final Re sult [facility] [address] [place] [phone] * Cologuard?? colon cancer screening (08/27/2023 8:04 AM EDT) Cologuard Result Negative Negative 09/03/19 9:33 AM EDT DEQ (CLIA #:[id number]) Comment: NEGATIVE TEST RESULT. A negative Cologuard [...] cancer. ??Following a negative Cologuard result, the [employer] Society and U.S. Multi-Society Task Force screening guidelines recommend a Cologuard re-screening interval of 3 years. References: [employer] Guideline for Colorectal Cancer Screening: https://www.cancer.org/cancer/ehmxy-icllww-bzgrfc/exmfrgpop-ewdhkfnav-adtfhjd/ac s-rec ommendations.html.; Horacio DK, Chrissy CR, Natalia HealyK, Colorectal Cancer Screening: Recommendations for Physicians and Patients from the U.S. Multi-Society Task Force on Colorectal Cancer Screening , Am J Gastroenterology 2017; 112:3199-4215. TEST DESCRIPTION: Composite algorithmic analysis of stool [...] (Petra Bell al, N Engl J Med 2014;370(14):9474-2344.) Cologuard may produce a false negative or false positive result (no colorectal cancer or precancerous polyp present at colonoscopy follow up). A negative Cologuard test result does not guarantee the absence of CRC or advanced adenoma (pre-cancer). The current Cologuard screening interval is every 3 years. ([employer] Society and U.S. Multi-Society Task Force). Cologuard performance data in a 10,000 patient pivotal study using colonoscopy as the reference method can be accessed at the following location: www.[employer].com/results. Additional description of the Cologuard test process, warnings and precautions can be found at www.colJellyfishArt.comrd.com. Stool specimen (specimen) 08/27/2023 8:04 AM EDT 08/29/2023 12:00 PM EDT [facility] LAB MOLECULAR DIAGNOSTICS ORD ERABLES Final Result Performing Organization Address [facility] Co de Phone Number DEQ (CLIA #:[id number]) [place] [address], * HEPATITIS C AB W/REFL TO HCV [...] a test for HCV RNA (test code 36943) is suggested. ?? For additional information please refer to http://education.HealthLinkNow.KeyLemon/faq/ABW07s8 (This link is being provided for informational/ educational purposes only.) ?? 10/30/2021 11:3 7 AM EDT [facility] HISTORICAL/NON ORDERABLE LABS Final Result Performing Organization Address [facility] Co de Phone Number [facility] [address] [place] [address], * HIV 1/2 ANTIGEN/ANTIBODY,FOURTH GENERATION W/RFL (10/30/2021 [...] ? For additional information please refer to http://education.[employer]ocalytics/faq/YFT793 (This link is being provided for informational/ educational purposes only.) ? The performance of this assay has not been clinically validated in patients less than 2 years old. ?? 10/30/2021 11:3 7 AM EDT [facility] LAB BLOOD ORDERABLES Final Re sult [facility] [address] from Last 3 Months or Most Recently Relevant to Health Maintenance Insurance [facility] [place] [id number] Care Teams Levee Superintendent Relationship Specialty Start Date End Date Florina Marshall FNP [address] [place] [phone] PCP - General Family Medicine 02/27/21
== END 2024-08-18 09:54 | disposition home or self-care (01) ==
LOC: HO.CT 09:53
PROVIDERS: PCP Registered Nurse; Visit Provider Registered Nurse
DX: R22.1 Localized swelling, mass and lump, neck (principal)
CPT/HCPCS: 70491; Q9967

== ENCOUNTER → 2024-08-18 09:57 | Outpatient (BNV) | payer MEDICAID, SELFPAY | PROVIDERS: PCP Registered Nurse; Visit Provider Radiology Diagnostic Radiology | DX: R22.1 Localized swelling, mass and lump, neck (principal) | CPT/HCPCS: 70491 ==

== ENCOUNTER 2024-10-21 08:39 | Outpatient (REF) | payer MEDICAID, SELFPAY ==
[2024-10-21 12:03] LABS: Alanine Aminotransferase 52 U/L (0-40); Albumin Level 4.5 g/dL (3.5-5.0); Alkaline Phosphatase 47 U/L (39-117); Anion Gap 12 (12-20); Aspartate Amino Transferase 35 U/L (5-37); Bilirubin Total 0.5 mg/dL (0.0-1.0); Blood Urea Nitrogen 15 mg/dL (9-16); Calcium 9.6 mg/dL (8.4-10.2); Carbon Dioxide 27 mmol/L (22-29); Chloride 104 mmol/L (96-108); Cholesterol 197 mg/dL (<200); Estimated Glomerular Filt Rate > 60; Glucose Random 98 mg/dL (60-115); HDL Cholesterol 52 mg/dL (>40); LDL Cholesterol Calculated 122 mg/dL (<100); Potassium 3.7 mmol/L (3.3-5.1); Sodium 139 mmol/L (135-145); Total Protein 7.7 g/dL (6.5-8.0); Triglycerides 117 mg/dL (<150)
== END 2024-10-21 08:40 | disposition home or self-care (01) ==
LOC: HO.HHCL 08:39
PROVIDERS: Visit Provider Registered Nurse
DX: I10 Essential (primary) hypertension (principal)
CPT/HCPCS: 36415; 80053; 80061

== ENCOUNTER 2025-04-07 15:40 | Outpatient (REF) | payer MEDICAID, SELFPAY ==
--- NOTE | ~2025-04-07 | US_ITS ---
EXAMINATION: US SCROTUM HISTORY: N50.3 - Cyst of epididymis. COMPARISON: Previous scrotal ultrasound December 2023 FINDINGS: Real-time grayscale ultrasound imaging of the scrotum was performed. RIGHT TESTICLE: The right testis measures 5.1 x 2.7 x 3.6 cm and demonstrates normal homogeneous echotexture. No masses are seen. The right testis demonstrates normal color Doppler flow. No torsion. RIGHT EPIDIDYMIS: Epididymal head minimally complex cyst measuring 2.9 x 1.9 x 3 cm. This is slightly increased in size and complexity, measuring 2.5 x 1.7 x 2.5 cm on prior exam. Additional smaller adjacent epididymal head clustered cysts versus multiloculated cyst measuring 1 x 1.3 cm not appreciably changed. LEFT TESTICLE: The left testis measures 4.6 x 2.2 x 3.4 cm and demonstrates normal homogeneous echotexture. No masses are seen. The left testis demonstrates normal color Doppler flow. No torsion. LEFT EPIDIDYMIS: 1.2 x 1.2 x 1.8 cm simple left epididymal head cyst. This measured 1.7 x 1.1 x 1.6 cm on prior exam and is probably not appreciably changed. Small appendix epididymis. VARICOCELE: Small left varicocele. No right varicocele. HYDROCELE: No significant hydrocele is seen. OTHER COMMENTS: None. US/US scrotum IMPRESSION: Bilateral epididymal head cysts. Slight interval increase in size and complexity of largest right epididymal head cyst now measuring 2.9 x 3 cm. Small left varicocele. Electronically signed by: Jessy You MD 04/07/2025 04:40 PM [facility]
--- OUTSIDE RECORDS SUMMARY | 2025-04-07 16:40 | XMS_ITS | Encounter Summary ---
Author Organization [employer] Address [address] [facility] [address] [place] [address] Care Team Providers Care Finance Associate Name Role Phone Florina Marshall [facility] Primary Care Provider [phone] Reason for Visit * Reason Onset Date Comments Med Refill 03/02/2025 Encounter Details Date Type Department Care Team (Late st Contact Info) Description 03/02/2025 Refill [facility] MEDICINE [address] [place] [address] Amy Foreman MD [address] [place] [address] Essential hypertension Social History Tobacco Use Types [...] Date Recorded Patient Health Questionnaire-9 Score 0 10/19/2024 Patient Health Questionnaire-9 Score 0 10/19/2024 Last PHQ-9: Questionnaire Data Not on file 0 10/19/2024 Housing Stability Answer Date Recorded What is [...] Date Recorded Patient Health Questionnaire-2 Score 0 10/19/2024 Internet Access Answer Date Recorded Internet Access Q1 No 10/19/2024 Internet Access Q2 Not on file 10/19/2024 Sex and Gender Information Value Date Recorded [...] Noted Time PHQ-9 Depression Total Score: 0 10/20/19 25 10:28 AM EDT documented as of this encounter Care Teams Finance Associate Relationship Specialty Start Date End Date Florina Marshall FNP [address] [place] [phone] PCP - General Family Medicine 02/27/21 documented as of this encounter
--- OUTSIDE RECORDS SUMMARY | 2025-04-07 16:40 | XMS_ITS | Encounter Summary ---
Author Organization [employer] Address 75 [facility] [address] [place] [address] Care Team Providers Care Tack Picker Name Role Phone Florina Marshall [facility] Primary Care Provider [phone] Encounter Details Date Type Department Care Team (Late st Contact Info) Description 07/30/2022 Orders Only [facility] MED & PEDS [address] [place] [address] Tina Husain LPN Social History Tobacco Use [...] on filedocumented in this encounter Care Teams Tack Picker Relationship Specialty Start Date End Date Rolando KATHRINE Heaton [address] [place] [phone] PCP - General Family Medicine 02/27/21 documented as of this encounter
--- OUTSIDE RECORDS SUMMARY | 2025-04-07 16:40 | XMS_ITS | Encounter Summary ---
Author Organization [employer] Address [address] [facility] [address] [place] [address] Care Team Providers Care Vocational Training Teacher Name Role Phone Florina Marshall [facility] Primary Care Provider [phone] Encounter Details Date Type Department Care Team (Late st Contact Info) Description 07/22/2022 Orders Only [facility] MEDICINE [address] [place], [place] [phone] Christin Payan LPN Social History Tobacco Use [...] on filedocumented in this encounter Care Teams Vocational Training Teacher Relationship Specialty Start Date End Date Florina MarshallKATHRINE [address] [place] [address] PCP - General Family Medicine 02/27/21 documented as of this encounter
--- OUTSIDE RECORDS SUMMARY | 2025-04-07 16:40 | XMS_ITS | Encounter Summary ---
Author Organization [employer] Address [address] [facility] [address] [place] [address] Care Team Providers Care Freedom Of Information Officer Name Role Phone Florina Marshall [facility] Primary Care Provider [phone] Reason for Visit * Reason Onset Date Comments Med Refill 02/18/2024 Encounter Details Date Type Department Care Team (Late st Contact Info) Description 02/18/2024 Refill [facility] MED [facility] PEDS [address] [place] [address] Rolando, [facility] [address] [facility] [place] [address] Social History Tobacco Use Types Packs/Day Years [...] documented as of this encounter Care Teams Freedom Of Information Officer Relationship Specialty Start Date End Date Florina Marshall FNP [address] [place] [address] PCP - General Family Medicine 02/27/21 documented as of this encounter
--- OUTSIDE RECORDS SUMMARY | 2025-04-07 16:40 | XMS_ITS | Clinical Summary ---
Author Organization [employer] Address 75 [facility] 7t [place] [address] Care Team Providers Care Wheel Inspector Name Role Phone Florina Marshall [facility] Primary Care Provider [phone] Allergies No known active allergies Medications cetirizine (ZyrTEC) 10 MG tabletIndications :Seasonal allergies TAKE 1 TABLET BY MOUTH EVERY DAY 90 tablet 1 5 Active triamcinolone (Kenalog) 0.1 % ointment Apply topically 2 times daily. 15 g 2 5 Active lisinopril 10 MG tablet TAKE 1 TABLET BY MOUTH EVERY DAY 90 tablet 3 5 Active hydroCHLOROthiazi de (HYDRODiuril) 25 MG tabletIndications :Essential hypertension Take 1 tablet (25 mg) by mouth Once per day. 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 to apartment rental agent -no stye or chalazion , no indication [...] CT screen: Age 50 Vision Exam: Through [facility]: Jairo Enola History of tobacco use disorder 08/10/2023 Overview (08/10/2023): Former Quit 2021 Assessment & Plan (08/12/2023 6:35 AM EDT): Congratulated patient Mixed hyperlipidemia 08/10/2023 Overview (08/10/2023): Rosuvastatin 20mg daily Assessment & Plan (08/12/2023 6:35 AM EDT): Well controlled Continue current regimen Encounters Date Type Department Care Team Description 03/02/2025 Refill [facility] [address] [place] [address] Amy Foreman MD Essential hypertension 03/02/2025 Refill [facility] [address] [place] [address] RolandoFlorina tucker FNP from Last 3 Months Immunizations Immunization Administration Dates Next Due Hep B, adult 10/19/2024,01/30/2022,11/05/2021 MMR 10/29/2023 Tdap 04/20/2019 Social History Tobacco [...] Sign Reading Time Taken Comments Blood Pressure 136/79 10/19/2024 10:26 AM EDT Pulse 79 10/19/2024 10:26 AM EDT Temperature 36 C (96.8 F) 10/19/2024 10:26 AM EDT Respiratory Rate 16 10/19/2024 10:26 AM EDT Oxygen Saturation 98% 04/18/2024 1:07 PM EST Inhaled Oxygen Concentration - - Weight 125 kg (276 lb 9.6 oz) 10/19/2024 10:26 A M EDT Height 188 cm (6' 2 ) 10/19/2024 10:26 AM EDT Body Mass Index 35.51 10/19/2024 10:26 AM EDT Plan of Treatment Health Maintenance Due Date Last Done Comments CT Colonography 1975 Colonoscopy 1975 FIT 1975 Sigmoidoscopy 1975 Family Planning (PISQ) 08/23/1990 Hepatitis A Vaccines (1 of 2 - Risk 2-dose series) 08/23/1994 FOBT 08/26/2024 08/27/2023 COVID-19 Vaccine ( season) 2025 05/27/2021, 09/21/2020, 08/29/2020 Influenza Vaccine (#1) 2025 Alcohol/Substance Use Screening 07/22/2025 07/22/2024 Zoster Vaccines (1 of 2) 08/23/2025 Depression Screening 10/19/2025 10/19/2024, 10/20/19 Disability Screening 10/19/2025 10/19/2024 SDOH Screening 10/19/2025 10/19/2024 Tobacco Screening 10/19/2025 10/19/2024 Colorectal Cancer Screening 08/26/2026 FIT DNA/Cologuard 08/26/2026 08/27/2023 DTaP/Tdap/Td Vaccines (2 - Td or Tdap) 04/20/2029 04/20/2019 Lipid Panel 10/21/2029 10/21/2024, 04/02, 08/11/2023, Additional history exists RSV Patients and Patients Aged 60 years or older (1 - 1-dose 75+ series) 08/23/2050 HIV Screening Completed 10/30/2021 Hepatitis C Screening Completed 10/30/2021 Hepatitis B Vaccines Completed 10/19/2024, 01/30/2022, 11/05/2021 HIB Vaccines Aged Out No longer eligi ble based on patient's age to complete this topic HPV Vaccines Aged Out No longer eligi ble based on patient's age to complete this topic IPV Vaccines Aged Out No longer eligi ble based on patient's age to complete this topic Meningococcal B Vaccine Aged Out No l onger eligible based on patient's age to complete this topic Meningococcal Vaccine Aged Out No matteo holli eligible based on patient's age to complete this topic Pneumococcal Vaccine: Pediatrics (0 to 5 Years) and At-Risk Patients (6 to 49) Years Aged Out No longer eligible based on patient's age to complete this topic RSV under 20 months Aged Out No longe r eligible based on patient's age to complete this topic Rotavirus Vaccines Aged Out No longer eligible based on patient's age to complete this topic Procedures Procedure Name Priority Date/Time Associated Diagnosis Comments LIPID PANEL, STANDARD Routine 10/21/2024 8:41 AM EDT Essential hypertension LAB COLOGUARD COLON CANCER SCREEN Routine 08/27/2023 8:04 AM EDT Encounter for screening for malignant neoplasm of colon ZZZ HISTORICAL HEPATITIS C AB W/REFL TO HCV RNA, QN, PCR Routine 10/30/2021 11:37 AM EDT HIV 1/2 ANTIGEN/ANTIBODY, FOURTH GENERATION W/RFL Routine 10/30/2021 11:37 AM EDT from Last 3 Months or Most Recently Relevant to Health Maintenance Results * (ABNORMAL) Lipid Panel, Standard (10/21/2024 8:41 AM EDT) Triglycerides 117 <150 mg/dL [facility] Comment:Desirable Triglyceri de: less than 150 mg/dLBorderline High Triglyceride 150-199 mg/dLHigh Triglyceride: 200-499 mg/dLVery High Triglyceride: greater than or equal to 5OO mg/dL Cholesterol 197 <200 mg/dL [facility] Comment:Desirable Cholestero l: less than 200 mg/dLBorderline High Cholesterol: 200-239 mg/dLHigh Cholesterol: greater than 239 mg/dL LDL Cholesterol Calculated 122(H) <100 mg/dL [facility] Comment:Desirable LDL: less than 100 mg/dLNear Optimal/Above Optimal LDL: 110- 129 mg/dLBorderline High LDL: 130-159 mg/dLHigh LDL: 160-189 mg/dLVery High LDL: greater than or equal to 190 mg/dL HDL Cholesterol 52 >40 mg/dL [facility] Comment:Desirable HDL: great er than 40 mg/dL Note: This HDL assay may give artificially low results in patients with liver disease. Blood Venous blood specimen / Unknown 10/21/2024 8:41 AM EDT 10/21/2024 11:18 AM EDT [facility] LAB BLOOD ORDERABLES Final Re sult [facility] [address] [place] [phone] * Cologuard?? colon cancer screening (08/27/2023 8:04 AM EDT) Cologuard Result Negative Negative 09/03/19 24 9:33 AM EDT [email or web address] (CLIA #:[id number]) Comment: NEGATIVE TEST RESULT. A negative Cologuard result indicates a low likelihood that a colorectal cancer (CRC) or advanced adenoma (adenomatous polyps with more advanced pre-malignant features) is present. The chance that a person with a negative Cologuard test has a colorectal cancer is less than 1 in 1500 (negative predictive value >99.9%) or has an advanced adenoma is less than 5.3% (negative predictive value 94.7%). These data are based on a prospective cross-sectional study of 10,000 individuals at average risk for colorectal cancer who were screened with both Cologuard and colonoscopy. (Petra Bell al, N Engl J Med 2014;370(14):1723-4781) The normal value (reference range) for this assay is negative. COLOGUARD RE-SCREENING RECOMMENDATION: Periodic colorectal cancer screening is an important part of preventive healthcare for asymptomatic individuals at average risk for colorectal cancer. Following a negative Cologuard result, the [place] [employer] Society and U.S. Multi-Society Task Force screening guidelines recommend a Cologuard re-screening interval of 3 years. References: [place] [employer] Guideline for Colorectal Cancer Screening: https://www.cancer.org/cancer/xxgnl-jyvegq-pxyzwj/zvknvxzpo-oeawtiyyq-uaaufrq/ac s-rec ommendations.html.; Horacio DK, Chrissy CR, Natalia HealyK, Colorectal Cancer Screening: Recommendations for Physicians and Patients from the U.S. Multi-Society Task Force on Colorectal Cancer Screening , Am J Gastroenterology 2017; 112:9521-1552. TEST DESCRIPTION: Composite algorithmic analysis of stool DNA-biomarkers with hemoglobin immunoassay. Quantitative values of individual biomarkers are not [...] (Petra Bell al, N Engl J Med 2014;370(14):0224-5821.) Cologuard may produce a false negative or false positive result (no colorectal cancer or precancerous polyp present at colonoscopy follow up). A negative Cologuard test result does not guarantee the absence of CRC or advanced adenoma (pre-cancer). The current Cologuard screening interval is every 3 years. ([place] [employer] and U.S. Multi-Society Task Force). Cologuard performance data in a 10,000 patient pivotal study using colonoscopy as the reference method can be accessed at the following location: www.Captimo.Cellufun/results. Additional description of the Cologuard test process, warnings and precautions can be found at www.[employer]ix.Cellufun. Stool specimen (specimen) 08/27/2023 8:04 AM EDT 08/29/2023 12:00 PM EDT [facility] LAB MOLECULAR DIAGNOSTICS ORD ERABLES Final Result Performing Organization Address City/[facility] Co de Phone Number [email or web address] (CLIA #:[id number]) [place] [address], * HEPATITIS C AB W/REFL TO HCV RNA, QN, PCR (10/30/2021 11:37 AM EDT) HEPATITIS C ANTIBODY NON-REACT JUAN PABLO NON-REACT JUAN PABLO [facility] INDEX 0.13 <1.00 [facility] Comment: HCV antibody was non-reactive. There is no laboratory evidence of HCV infection. In most cases, no further action is required. However, if recent HCV exposure is suspected, a test for HCV RNA (test code 89432) is suggested. For additional information please refer to http://education.Yingying Licai.Cellufun/faq/QKA20f3 (This link is being provided for informational/ educational purposes only.) 10/30/2021 11:3 7 AM EDT [facility] HISTORICAL/NON ORDERABLE LABS Final Result Performing Organization Address [facility] Co de Phone Number [facility] [address] * HIV 1/2 ANTIGEN/ANTIBODY,FOURTH GENERATION W/RFL (10/30/2021 11:37 AM EDT) HIV-1/2 ANTIGEN AND ANTIBODIES, 4TH GENERATION W/ REFLEX NON-REACT JUAN PABLO NON-REACT JUAN PABLO [facility] Comment: HIV-1 antigen and HIV-1/HIV-2 antibodies were not detected. There is no laboratory evidence of HIV infection. PLEASE NOTE: This information has been disclosed to you from records whose confidentiality may be protected by state law. If your state requires such protection, then the state law prohibits you from making any further disclosure of the information without the specific written consent of the person to whom it pertains, or as otherwise permitted by law. A general authorization for the release of medical or other information is NOT sufficient for this purpose. For additional information please refer to http://Nonlinear Dynamics.REES46/faq/PLT669 (This link is being provided for informational/ educational purposes only.) The performance of this assay has not been clinically validated in patients less than 2 years old. 10/30/2021 11:3 7 AM EDT [facility] LAB BLOOD ORDERABLES Final Re sult [facility] Formerly [facility] [address] from Last 3 Months or Most Recently Relevant to Health Maintenance Insurance [facility] C3 N PARTIAL Care Teams Wheel Inspector Relationship Specialty Start Date End Date Flroina Marshall FNP [address] [place] [phone] PCP - General Family Medicine 02/27/21
--- OUTSIDE RECORDS SUMMARY | 2025-04-07 16:40 | XMS_ITS | Encounter Summary ---
Author Organization [employer] Address 75 [facility] 7t [place] [address] Care Team Providers Care Toll Relief Operator Name Role Phone Florina Marshall [facility] Primary Care Provider [phone] Reason for Visit * Reason Onset Date Comments Med Refill 04/18/2024 Encounter Details Date Type Department Care Team (Late st Contact Info) Description 04/18/2024 Refill [facility] MEDICINE [address] [place] [address] Florina MarshallMCLAREN FL[place] [address] [place] [address] Social History Tobacco Use Types Packs/Day Years [...] documented as of this encounter Care Teams Toll Relief Operator Relationship Specialty Start Date End Date Florina Marshall FNP [address] [place] [phone] PCP - General Family Medicine 02/27/21 documented as of this encounter
--- OUTSIDE RECORDS SUMMARY | 2025-04-07 16:40 | XMS_ITS | Encounter Summary ---
Author Organization [email or web address] Address 75 [facility] 7t [place] [address] Care Team Providers Care Social Group Worker Name Role Phone Florina Marshall [facility] Primary Care Provider [phone] Reason for Visit * Reason Onset Date Comments Med Refill 09/13/2024 Encounter Details Date Type Department Care Team (Late st Contact Info) Description 09/13/2024 Refill [facility] [address] [place] [address] [facility] [address] [place] [address] Essential hypertension Social History Tobacco Use Types [...] documented as of this encounter Care Teams Social Group Worker Relationship Specialty Start Date End Date Florina Marshall FNP [address] [place] [phone] PCP - General Family Medicine 02/27/21 documented as of this encounter
--- OUTSIDE RECORDS SUMMARY | 2025-04-07 16:40 | XMS_ITS | Encounter Summary ---
Author Organization [employer] Address 75 [facility] 7t [place] [address] Care Team Providers Care Chief Service Observer Name Role Phone Florina Marshall [facility] Primary Care Provider [phone] Reason for Visit * Reason Onset Date Comments Med Refill 02/28/2024 Encounter Details Date Type Department Care Team (Late st Contact Info) Description 02/28/2024 Refill [facility] [address] [place] [address] [facility] [address] [place] [address] Seasonal allergies Social History Tobacco Use Types [...] documented as of this encounter Care Teams Chief Service Observer Relationship Specialty Start Date End Date Florina Marshall FNP [address] [place] [phone] PCP - General Family Medicine 02/27/21 documented as of this encounter
--- OUTSIDE RECORDS SUMMARY | 2025-04-07 16:40 | XMS_ITS | Encounter Summary ---
Author Organization [employer] Address 75 [facility] 7t [place] [address] Care Team Providers Care Garment Folder Name Role Phone Florina Marshall [facility] Primary Care Provider [phone] Reason for Visit * Reason Onset Date Comments Results 04/21/2024 Encounter Details Date Type Department Care Team ([facility] st Contact Info) Description 04/21/[address] [facility] MED[facility] [address] [place], [place] [phone] Florina Marshall [facility] [address] [place] [address] Results Social History Tobacco Use Types Packs/Day [...] of results:labs Date when done: 04/20/24 Facility: [facility] documented in this encounter Plan of Treatment Not on file documented as of this encounter Visit Diagnoses Not on filedocumented in this encounter Additional Health Concerns Assessment Noted Time PHQ-9 Depression Total Score: 0 10/16/19 9:50 AM EDT documented as of this encounter Care Teams Garment Folder Relationship Specialty Start Date End Date Florina Marshall FNP [address] [place] [phone] PCP - General Family Medicine 02/27/21 documented as of this encounter
--- OUTSIDE RECORDS SUMMARY | 2025-04-07 16:40 | XMS_ITS | Encounter Summary ---
Author Organization [employer] Address 75 [facility] 7t [place] [address] Care Team Providers Care Wedding Planner Name Role Phone Florina Marshall [facility] Primary Care Provider [phone] Reason for Visit * Reason Onset Date Comments Med Refill 08/11/2024 Encounter Details Date Type Department Care Team (Late st Contact Info) Description 08/11/2024 Refill [facility] MED[facility]INE [address] [place] [address] [facility] 230 [place] [address] Seasonal allergies Social History Tobacco Use Types [...] documented as of this encounter Care Teams Wedding Planner Relationship Specialty Start Date End Date Florina Marshall FNP [address] [place] [phone] PCP - General Family Medicine 02/27/21 documented as of this encounter
--- OUTSIDE RECORDS SUMMARY | 2025-04-07 16:40 | XMS_ITS | Encounter Summary ---
Author Organization [employer] Address [address] [facility] [address] 7t [place] [address] Care Team Providers Care Reel Winder Name Role Phone Florina Marshall [facility] Primary Care Provider [phone] Reason for Visit * Reason Onset Date Comments Med Refill 04/18/2024 Encounter Details Date Type Department Care Team (Late st Contact Info) Description 04/18/2024 Refill [facility] [address] [place] [address] Rolando, [facility] [address] [facility] [place] [address] Essential hypertension Social History Tobacco Use Types [...] documented as of this encounter Care Teams Reel Winder Relationship Specialty Start Date End Date Florina Marshall FNP [address] [place] [phone] PCP - General Family Medicine 02/27/21 documented as of this encounter
--- OUTSIDE RECORDS SUMMARY | 2025-04-07 16:40 | XMS_ITS | Encounter Summary ---
Author Organization [employer] Address 75 [facility] 7t [place] [address] Care Team Providers Care Business Process Manager Name Role Phone Florina Marshall [facility] Primary Care Provider [phone] Encounter Details Date Type Department Care Team (Late st Contact Info) Description 02/03/2023 Orders Only [facility] MED & PEDS [address] [place] [address] Tina Husain LPN Social History Tobacco Use [...] on filedocumented in this encounter Care Teams Business Process Manager Relationship Specialty Start Date End Date Rolando KATHRINE [place] [address] [place] [address] PCP - General Family Medicine 02/27/21 documented as of this encounter
--- OUTSIDE RECORDS SUMMARY | 2025-04-07 16:40 | XMS_ITS | Encounter Summary ---
Author Organization [employer] Address 75 [facility] 7t [place] [address] Care Team Providers Care Retail Support Manager Name Role Phone Florina Marshall [facility] Primary Care Provider [phone] Encounter Details Date Type Department Care Team (Late st Contact Info) Description 04/07/2023 Orders Only [facility] MED & PEDS [address] [place] [address] Tina Husain LPN Social History Tobacco Use [...] on filedocumented in this encounter Care Teams Retail Support Manager Relationship Specialty Start Date End Date Rolando KATHRINE [place] [address] [place] [address] PCP - General Family Medicine 02/27/21 documented as of this encounter
--- OUTSIDE RECORDS SUMMARY | 2025-04-07 16:40 | XMS_ITS | Encounter Summary ---
Author Organization [employer] Address 75 [facility] 7t [place] [address] Care Team Providers Care Programmer Numerical Control Name Role Phone Florina Marshall [facility] Primary Care Provider [phone] Reason for Visit * Reason Onset Date Comments Med Refill 11/10/2024 Encounter Details Date Type Department Care Team (Late st Contact Info) Description 11/10/2024 Refill [facility] [address] [place] [address] [facility] 230 [place] [address] Seasonal allergies Social History Tobacco Use Types [...] documented as of this encounter Care Teams Programmer Numerical Control Relationship Specialty Start Date End Date Florina Marshall FNP [address] [place] [phone] PCP - General Family Medicine 02/27/21 documented as of this encounter
--- OUTSIDE RECORDS SUMMARY | 2025-04-07 16:40 | XMS_ITS | Encounter Summary ---
Author Organization [employer] Address 75 [facility] 7t [place] [address] Care Team Providers Care Manager Metrology Name Role Phone Florina Marshall [facility] Primary Care Provider Encounter Details Date Type Department Care Team (Late st Contact Info) Description 06/30/2022 Orders Only [facility] MED & PEDS [address] [place] [address] Tina Husain LPN Social History Tobacco Use [...] on filedocumented in this encounter Care Teams Manager Metrology Relationship Specialty Start Date End Date Rolando KATHRINE [place] [address] [place] [phone] PCP - General Family Medicine 02/27/21 documented as of this encounter
--- OUTSIDE RECORDS SUMMARY | 2025-04-07 16:40 | XMS_ITS | Encounter Summary ---
Author Organization [employer] Address 75 [facility] 7t [place] [address] Care Team Providers Care Historical Society Director Name Role Phone Florina Marshall [facility] Primary Care Provider [phone] Reason for Visit * Reason Onset Date Comments Med Refill 09/13/2024 Encounter Details Date Type Department Care Team (Late st Contact Info) Description 09/13/2024 Refill [facility] [address] [place] [address] [facility] [address] [place] [address] Social History Tobacco Use Types Packs/Day Years [...] documented as of this encounter Care Teams Historical Society Director Relationship Specialty Start Date End Date Florina Marshall FNP [address] [place] [phone] PCP - General Family Medicine 02/27/21 documented as of this encounter
== END 2025-04-07 15:41 | disposition home or self-care (01) ==
LOC: HO.US 15:40
PROVIDERS: PCP Registered Nurse; Visit Provider Nurse Practitioner Family
DX: N50.3 Cyst of epididymis (principal)
CPT/HCPCS: 76870

== ENCOUNTER → 2025-04-07 15:42 | Outpatient (BNV) | payer MEDICAID, SELFPAY | PROVIDERS: PCP Registered Nurse; Visit Provider Radiology Diagnostic Radiology | DX: N50.3 Cyst of epididymis (principal) | CPT/HCPCS: 76870 ==

== ENCOUNTER 2025-04-12 09:22 | Outpatient (REF) | payer MEDICAID, SELFPAY | END 2025-04-12 09:23 | disposition home or self-care (01) | LOC: HO.LAB 09:22 | PROVIDERS: PCP Nurse Practitioner Primary Care; Visit Provider Nurse Practitioner Family | DX: R31.29 Other microscopic hematuria (principal); N40.0 Benign prostatic hyperplasia without lower urinary tract symptoms; N50.3 Cyst of epididymis; R36.1 Hematospermia; R61 Generalized hyperhidrosis; Z13.89 Encounter for screening for other disorder | CPT/HCPCS: 81003; 88112; 99212 ==

== ENCOUNTER 2025-04-12 09:22 | Outpatient (AMB) | payer MEDICAID, SELFPAY ==
--- NOTE | 2025-04-12 09:26 | A.OFFVIS_ITS ---
Intake Visit Reasons: 1y/US Intake Note: Patient is present for 1Y/US Urology Medication:NONE Antibiotic Allergy:NONE Blood Thinner:NONE Power Tong Operator Required: No Allergies No Known Allergies (No Known Allergies*) Allergy (Verified 04/12/25 10:57) Medication List - Last Reconciled 04/12/25 by TAMRA Perrin cetirizine 10 mg PO DAILY hydrochlorothiazide 25 mg PO DAILY lisinopril 10 mg PO DAILY rosuvastatin 20 mg PO DAILY HPI Comments Details: Alec is a very pleasant 49-year-old male patient of Dr. Estrada. He has a past medical history of hypertension and hypercholesteremia. He presents to the office today for follow-up of his bilateral epididymal head cysts. In discussion with the patient today he reports to be doing and feeling well. He denies having had any bothersome urinary issues since his last office visit here. He denies having had any scrotal discomfort. He does however report having had a recent episode of potential hematospermia. Most recent scrotal ultrasound results reviewed with the patient today 04/25 bilateral epididymal head cysts. Slightly interval increase in size and complex cyst 80 of largest right epididymal head cysts now measuring 2.9 x 3 cm. Small left varicocele. In assessment of the patient today palpable bilateral epididymal head cysts right greater than left otherwise no masses, lesions, and or drainage noted throughout the area. Patient does report slight discomfort during palpation of exam today. He denies having had any pain, nausea, and or vomiting. He denies urinary urgency, urinary frequency, incontinence, nocturia, hematuria, dysuria, foul smelling urine, changes to urinary stream, flank pain, fever, and or chills. He is happy with her current voiding parameters. He denies any known family history of prostate cancer. We did discuss potential causes of epididymal head cysts as well as hematospermia. We discussed further interventions and risks and benefits of these interventions. All questions were answered. In office urinalysis results reviewed with the patient today. He otherwise offers no other issues or concerns today. [facility] Medical History History of high cholesterol History of high blood pressure Social History Alcohol intake: former Patient Tobacco Use Status: Former Tobacco user Current occupational status: unemployed Current occupation: right hand dominant Review of Systems Const All systems reviewed & are unremarkable except as noted in HPI and below Physical Exam Const General: cooperative, healthy appearing, comfortable, no acute distress, well developed, alert and awake Orientation/consciousness: patient oriented x3 Limitations: no limitations HEENT Head: Yes normal to inspection, Yes normocephalic and Yes atraumatic Ears: hearing grossly normal bilaterally Eyes General: appearance normal, both eyes and all related structures Neck Neck: Yes normal visual inspection and Yes trachea midline Chest Chest palpation & inspection: normal inspection of the chest Resp Effort & Inspection: normal respiratory effort and able to speak in complete sentences Cardio Rate: regular rate GI Inspection: Yes normal to inspection General: Yes no CVA tenderness Back/Spine/Pelvis Back: no CVA tenderness Skin General skin exam: no rashes or lesions noted Neuro General: patient oriented x3 Extrem General: Yes normal to inspection Psych Appearance: grossly normal and well kempt Mental Status: mental status grossly normal Speech and movement: Normal speech and movement present and Clear speech present Affect: normal affect Attitude: cooperative Thought process: Normal thought process present Thought content: Normal thought content present Insight: Fair insight present (Psych) Judgement: Fair judgement present (Psych) Results AMB Urinalysis, Automated UA Leukoctes 0 Park/uL Last Edit by ANGEL Almendarez on 04/12/25 09:53 UA Nitrite Negative Last Edit by ANGEL Almendarez on 04/12/25 09:53 UA Urobilinogen 0.2 mg/dL Last Edit by ANGEL Almendarez on 04/12/25 09:5 3 UA Protein 0 mg/dL Last Edit by ANGEL Almendarez on 04/12/25 09:53 UA pH 6.0 Last Edit by ANGEL Almendarez on 04/12/25 09:53 UA Blood 10 [place]/uL Last Edit by ANGEL Almendarez on 04/12/25 09:53 UA Specific [place] 1.015 Last Edit by ANGEL Almendarez on 04/12/25 09: 53 UA Ketone Negative Last Edit by ANGEL Almendarez on 04/12/25 09:53 UA Bilirubin 0 mg/dL Last Edit by ANGEL Almendarez on 04/12/25 09:53 UA Glucose 0 mg/dL Last Edit by ANGEL Almendarez on 04/12/25 09:53 Results Reviewed Results Reviewed: Laboratory Last Values Urine pH (Auto) 6.0 04/12/25 09:30 Specific [place] (Auto) 1.015 04/12/25 09:30 Urine Protein (Auto) 0 mg/dL 04/12/25 09:30 Glucose (UA)(Auto) 0 mg/dL 04/12/25 09:30 Urine Ketones (Auto) Negative 04/12/25 09:30 Urine Blood (Auto) 10 [place]/uL 04/12/25 09:30 Urine Nitrite (Auto) Negative 04/12/25 09:30 Urine Bilirubin (Auto) 0 mg/dL 04/12/25 09:30 Urine Urobilinogen (Auto) 0.2 mg/dL 04/12/25 09:30 Leukocyte Esterase (Auto) 0 Park/uL 04/12/25 09:30 Date of Service: 04/07/25 Procedure(s): US scrotum RIGHT TESTICLE: The right testis measures 5.1 x 2.7 x 3.6 cm and demonstrates normal homogeneous echotexture. No masses are seen. The right testis demonstrates normal color Doppler flow. No torsion. RIGHT EPIDIDYMIS: Epididymal head minimally complex cyst measuring 2.9 x 1.9 x 3 cm. This is slightly increased in size and complexity, measuring 2.5 x 1.7 x 2.5 cm on prior exam. Additional smaller adjacent epididymal head clustered cysts versus multiloculated cyst measuring 1 x 1.3 cm not appreciably changed. LEFT TESTICLE: The left testis measures 4.6 x 2.2 x 3.4 cm and demonstrates normal homogeneous echotexture. No masses are seen. The left testis demonstrates normal color Doppler flow. No torsion. LEFT EPIDIDYMIS: 1.2 x 1.2 x 1.8 cm simple left epididymal head cyst. This measured 1.7 x 1.1 x 1.6 cm on prior exam and is probably not appreciably changed. Small appendix epididymis. VARICOCELE: Small left varicocele. No right varicocele. HYDROCELE: No significant hydrocele is seen. OTHER COMMENTS: None. IMPRESSION: Bilateral epididymal head cysts. Slight interval increase in size and complexity of largest right epididymal head cyst now measuring 2.9 x 3 cm. Small left varicocele. Assessment & Plan Assessment & Plan (1) Epididymal cyst: Code(s): N50.3 - Cyst of epididymis Category: Medical (2) Hematospermia: Code(s): R36.1 - Hematospermia Category: Medical Plan In office urinalysis results with the patient today; as noted above. Most recent scrotal imaging results reviewed with the patient today; as noted above. We did discussed potential causes of epididymal head cysts as well as hematospermia; we discussed further interventions and risks and benefits of the se interventions. All questions were answered. He denies any bothersome urinary issues. He reports be happy with current voiding parameters. Will obtain PSA now in in 1 year. Will obtain scrotal imaging in 1 year. Follow-up in 1 year with imaging and labs; or sooner with any issues, concerns, and or questions. Orders: Orders AMB Urinalysis Automated Today Z13.9 - Encounter for screening, unspecified Urine Cytology Today R31.29 - Other microscopic hematuria Prostate Specific Antigen Today R36.1 - Hematospermia Prostate Specific Antigen 1 Year N40.0 - Benign prostatic hyperplasia without lower urinary tract symptoms US scrotum 1 Year N50.3 - Cyst of epididymis Patient Instructions: The patient had an opportunity to ask questions regarding the treatment plan. All questions were answered. Physical exam, labs, and imaging were discussed and reviewed in detail. As well as risks, benefits, and discussion of treatment choices. No major barriers to understanding were identified. The patient expressed understanding and agreement with the above treatment plan. The patient was made aware they should contact our office by phone for worsening of their current condition, the appearance of new symptoms, or with any questions or concerns. Compliance is encouraged with any medications and follow up testing that is ordered. It is a privilege to be allowed the opportunity to participate in? your urological care.? Again, if you have any questions or concerns If you have any questions or concerns please do not hesitate to contact me. The office is [phone]. This note is constructed using voice recognition software. While every effort has been made to ensure accuracy steward/stewardess railroad dining car errors may have been included. Yours sincerely, KATHRINE Perrin-BC Coding Level of Care Code Est Pt Level 3 (41413) Diagnoses Epididymal cyst N50.3 Hematospermia R36.1
--- OUTSIDE RECORDS SUMMARY | 2025-04-12 10:16 | XMS_ITS | Encounter Summary ---
Author Organization [employer] Address [address] [facility] 7t [place] [address] Care Team Providers Care Ship Loader Name Role Phone Florina Marshall [facility] Primary Care Provider [phone] Reason for Visit * Reason Onset Date Comments Med Refill 09/13/2024 Encounter Details Date Type Department Care Team (Late st Contact Info) Description 09/13/2024 Refill [facility] MEDICINE [address] [place] [address] [facility] [address] [place] [address] Essential hypertension Social History Tobacco Use Types [...] documented as of this encounter Care Teams Ship Loader Relationship Specialty Start Date End Date Florina Marshall FNP [address] [place] [id number] PCP - General Family Medicine 02/27/21 documented as of this encounter
--- OUTSIDE RECORDS SUMMARY | 2025-04-12 10:16 | XMS_ITS | Encounter Summary ---
Author Organization [employer] Address [address] [facility] [address] 7[address] [place] [address] Care Team Providers Care Marketing Research Intern Name Role Phone Florina Marshall [facility] Primary Care Provider [phone] Reason for Visit * Reason Onset Date Comments Med Refill 02/18/2024 Encounter Details Date Type Department Care Team (Late st Contact Info) Description 02/18/2024 Refill [facility] MED & PEDS [address] [place] [address] Rolando, [facility] [address] [facility] [place] [address] Social History Tobacco Use Types Packs/Day Years [...] documented as of this encounter Care Teams Marketing Research Intern Relationship Specialty Start Date End Date Florina Marshall FNP [address] [place] [address] PCP - General Family Medicine 02/27/21 documented as of this encounter
--- OUTSIDE RECORDS SUMMARY | 2025-04-12 10:16 | XMS_ITS | Encounter Summary ---
Author Organization [employer] Address [address] [facility] 7[address] [place] [address] Care Team Providers Care Plisse Machine Operator Name Role Phone Florina Marshall [facility] Primary Care Provider [phone] Encounter Details Date Type Department Care Team (Late st Contact Info) Description 04/07/2023 Orders Only [facility] CHC MED & PEDS [address] [place] [address] Tina Husain LPN Social History Tobacco Use [...] on filedocumented in this encounter Care Teams Plisse Machine Operator Relationship Specialty Start Date End Date Rloando KATHRINE Heaton [address] [place] [id number] PCP - General Family Medicine 02/27/21 documented as of this encounter
--- OUTSIDE RECORDS SUMMARY | 2025-04-12 10:16 | XMS_ITS | Encounter Summary ---
Author Organization [employer] Address [address] [facility] 7[address] [place] [address] Care Team Providers Care Janitor And Cleaner Name Role Phone Florina Marshall [facility] Primary Care Provider [phone] Reason for Visit * Reason Onset Date Comments Results 04/21/2024 Encounter Details Date Type Department Care Team ([facility] st Contact Info) Description 04/21/2024 Telephone [facility] MEDICINE [address] [place], [place] [phone] Florina Marshall [facility] [address] [place] [address] Results Social History Tobacco Use Types Packs/Day [...] Date when done: 04/20/24 Facility: [facility] documented in this encounter Plan of Treatment Not on file documented as of this encounter Visit Diagnoses Not on filedocumented in this encounter Additional Health Concerns Assessment Noted Time PHQ-9 Depression Total Score: 0 10/16/19 9:50 AM EDT documented as of this encounter Care Teams Janitor And Cleaner Relationship Specialty Start Date End Date Florina Marshall FNP [address] [place] [id number] PCP - General Family Medicine 02/27/21 documented as of this encounter
--- OUTSIDE RECORDS SUMMARY | 2025-04-12 10:16 | XMS_ITS | Encounter Summary ---
Author Organization [employer] Address [address] [facility] [address] [place] [address] Care Team Providers Care Parer Name Role Phone Florina Marshall [facility] Primary Care Provider [phone] Reason for Visit * Reason Onset Date Comments Med Refill 11/10/2024 Encounter Details Date Type Department Care Team (Late st Contact Info) Description 11/10/[address] [facility] MEDICINE [address] [place] [address] [facility] [address] [place] [address] Seasonal allergies Social History Tobacco Use Types [...] documented as of this encounter Care Teams Parer Relationship Specialty Start Date End Date Florina Marshall FNP [address] [place] [id number] PCP - General Family Medicine 02/27/21 documented as of this encounter
--- OUTSIDE RECORDS SUMMARY | 2025-04-12 10:16 | XMS_ITS | Encounter Summary ---
Author Organization [employer] Address [address] [facility] 7[address] [place] [address] Care Team Providers Care Financial Analyst Name Role Phone Florina Marshall FACILITY MAINTENANCE TECHNICIAN Primary Care Provider [phone] Reason for Visit * Reason Onset Date Comments Med Refill 03/02/2025 Encounter Details Date Type Department Care Team (Late st Contact Info) Description 03/02/2025 Refill [facility] MEDICINE [address] [place] [address] Amy Foreman MD [address] [place] [address] Essential hypertension Social History Tobacco Use Types [...] documented as of this encounter Care Teams Financial Analyst Relationship Specialty Start Date End Date Florina Marshall FNP [address] [place] [id number] PCP - General Family Medicine 02/27/21 documented as of this encounter
--- OUTSIDE RECORDS SUMMARY | 2025-04-12 10:16 | XMS_ITS | Encounter Summary ---
Author Organization [email or web address] Address [address] [facility] 7t [place] [address] Care Team Providers Care Household Coordinator Name Role Phone Florina Marshall [facility] Primary Care Provider [phone] Encounter Details Date Type Department Care Team (Late st Contact Info) Description 07/22/2022 Orders Only [facility] MEDICINE [address] [place], [place] [phone] Christin Payan LPN Social History Tobacco Use [...] on filedocumented in this encounter Care Teams Household Coordinator Relationship Specialty Start Date End Date Florina MarshallKATHRINE [address] [place] [address] PCP - General Family Medicine 02/27/21 documented as of this encounter
--- OUTSIDE RECORDS SUMMARY | 2025-04-12 10:16 | XMS_ITS | Encounter Summary ---
Author Organization [employer] Address [address] [facility] [address] [place] [address] Care Team Providers Care Public Health Registrar Name Role Phone Florina Marshall [facility] Primary Care Provider [phone] Encounter Details Date Type Department Care Team (Late st Contact Info) Description 02/03/2023 Orders Only [facility] CHC MED & PEDS [address] [place] [address] Tina Husain LPN Social History Tobacco Use [...] on filedocumented in this encounter Care Teams Public Health Registrar Relationship Specialty Start Date End Date Rolando KATHRINE Heaton [address] [place] [phone] PCP - General Family Medicine 02/27/21 documented as of this encounter
--- OUTSIDE RECORDS SUMMARY | 2025-04-12 10:16 | XMS_ITS | Encounter Summary ---
Author Organization [employer] [facility] [employer] Address [address] [facility] [address] [place] [address] Care Team Providers Care Business Mgr Name Role Phone Florina Marshall [facility] Primary Care Provider [phone] Reason for Visit * Reason Onset Date Comments Med Refill 09/13/2024 Encounter Details Date Type Department Care Team (Late st Contact Info) Description 09/13/2024 Refill [facility] MEDICINE [address] [place] [address] [facility] [address] [place] [address] Social History Tobacco Use Types Packs/Day Years [...] documented as of this encounter Care Teams Business Mgr Relationship Specialty Start Date End Date Florina Marshall FNP [address] [place] [phone] PCP - General Family Medicine 02/27/21 documented as of this encounter
--- OUTSIDE RECORDS SUMMARY | 2025-04-12 10:16 | XMS_ITS | Clinical Summary ---
Author Organization [employer] Address [address] [facility] 7t [place] [address] Care Team Providers Care Shoe Stamper Name Role Phone Florina Marshall [facility] Primary Care Provider [phone] Allergies No known active allergies Medications cetirizine [...] annual eye exam so referred today to film projector operator -no stye or chalazion , no indication [...] CT screen: Age 50 Vision Exam: Through [facility] [place] Dental Care: Jairo Cedenoley History of tobacco use disorder 08/10/2023 Overview (08/10/2023): Former Quit 2021 Assessment & Plan (08/12/2023 6:35 AM EDT): Congratulated patient Mixed hyperlipidemia 08/10/2023 Overview (08/10/2023): Rosuvastatin 20mg daily Assessment & Plan (08/12/2023 6:35 AM EDT): Well controlled Continue current regimen Encounters Date Type Department Care Team Description 04/07/2025 Orders Only [facility] External Provider, [facility] 03/02/2025 Refill [facility] MED[facility]INE [address] [place], [place] [phone] Amy Foreman MD Essential hypertension 03/02/2025 Refill [facility] [address], [place] [phone] Florina Marshall, KATHRINE from Last 3 Months Immunizations Immunization Administration [...] 08/23/1994 FOBT 08/26/2024 08/27/2023 COVID-19 Vaccine ( - season) 2025 05/27/2021, 09/21/2020, 08/29/2020 Influenza Vaccine (#1) 2025 Alcohol/Substance Use Screening 07/22/2025 07/22/2024 Zoster Vaccines (1 of 2) 08/23/2025 Depression Screening 10/19/2025 10/19/2024, 10/20/19 25 Disability Screening 10/19/2025 10/19/2024 SDOH Screening 10/19/2025 [...] Name Priority Date/Time Associated Diagnosis Comments US SCROTUM Routine 04/07/2025 4:01 PM EST LIPID PANEL, STANDARD Routine 10/21/2024 8:41 AM [...] Relevant to Health Maintenance Results * US Scrotum (04/07/2025 4:01 PM EST) Anatomical Region Laterality Modality Body Ultrasound 04/07/2025 4:01 PM EST Narrative 04/07/2025 4:43 PM EST [address] [address] Ultrasound Report Signed Patient: Alec Acosta MR#: [id number] 2 : 1975 Acct:[id number] Age/Sex: 49 / M ADM Date: 04/07/25 Loc: HO.US Attending Dr: Katey MANCIA Ordering Physician: Katey Childers Date of Service: 04/07/25 Procedure(s): US scrotum Accession Number(s): [id number] cc: Katey Childers; [facility] Reason for Exam: N50.3 - Cyst of epididymis EXAMINATION: US SCROTUM HISTORY: N50.3 - Cyst of epididymis. COMPARISON: Previous scrotal ultrasound December 2023 FINDINGS: Real-time grayscale ultrasound imaging of the scrotum was performed. RIGHT TESTICLE: The right testis measures 5.1 x 2.7 x 3.6 cm and demonstrates normal homogeneous echotexture. No masses are seen. The right testis demonstrates normal color Doppler flow. No torsion. RIGHT EPIDIDYMIS: Epididymal head minimally complex cyst measuring 2.9 x 1.9 x 3 cm. This is slightly increased in size and complexity, measuring 2.5 x 1.7 x 2.5 cm on prior exam. Additional smaller adjacent epididymal head clustered cysts versus multiloculated cyst measuring 1 x 1.3 cm not appreciably changed. LEFT TESTICLE: The left testis measures 4.6 x 2.2 x 3.4 cm and demonstrates normal homogeneous echotexture. No masses are seen. The left testis demonstrates normal color Doppler flow. No torsion. LEFT EPIDIDYMIS: 1.2 x 1.2 x 1.8 cm simple left epididymal head cyst. This measured 1.7 x 1.1 x 1.6 cm on prior exam and is probably not appreciably changed. Small appendix epididymis. VARICOCELE: Small left varicocele. No right varicocele. HYDROCELE: No significant hydrocele is seen. OTHER COMMENTS: None. US/US scrotum IMPRESSION: Bilateral epididymal head cysts. Slight interval increase in size and complexity of largest right epididymal head cyst now measuring 2.9 x 3 cm. Small left varicocele. Electronically signed by: Jessy You MD 04/07/2025 04:40 PM EST Dictated By: Jessy You MD Signed By: <Electronically signed by Jessy You MD in OV> 04/07/25 1640 DD/ 1601 TD/TT: 04/07/25 1606 [employer] Design: AJAY Procedure Note Donotuseinterpreter, Image - 04/07/[address] [address] Ultrasound Report Signed Patient: Alec Acosta PMR#: [id number] 2 : 1975Acct:[id number] Age/Sex: 49 / MADM Date: 04/07/25 Loc: HO.US [facility] Ordering Physician: Katey Childers Date of Service: 04/07/25 Procedure(s): US scrotum Accession Number(s): [id number] cc: Katey Childers [facility]; [facility] Reason for Exam: N50.3 - Cyst of epididymis EXAMINATION: US SCROTUM HISTORY: N50.3 - Cyst of epididymis. COMPARISON: Previous scrotal ultrasound December 2023 FINDINGS: Real-time grayscale ultrasound imaging of the scrotum was performed. RIGHT TESTICLE: The right testis measures 5.1 x 2.7 x 3.6 cm and demonstrates normal homogeneous echotexture. No masses are seen. The right testis demonstrates normal color Doppler flow. No torsion. RIGHT EPIDIDYMIS: Epididymal head minimally complex cyst measuring 2.9 x 1.9 x 3 cm. This is slightly increased in size and complexity, measuring 2.5 x 1.7 x 2.5 cm on prior exam. Additional smaller adjacent epididymal head clustered cysts versus multiloculated cyst measuring 1 x 1.3 cm not appreciably changed. LEFT TESTICLE: The left testis measures 4.6 x 2.2 x 3.4 cm and demonstrates normal homogeneous echotexture. No masses are seen. The left testis demonstrates normal color Doppler flow. No torsion. LEFT EPIDIDYMIS: 1.2 x 1.2 x 1.8 cm simple left epididymal head cyst. This measured 1.7 x 1.1 x 1.6 cm on prior exam and is probably not appreciably changed. Small appendix epididymis. VARICOCELE: Small left varicocele. No right varicocele. HYDROCELE: No significant hydrocele is seen. OTHER COMMENTS: None. US/US scrotum IMPRESSION: Bilateral epididymal head cysts. Slight interval increase in size and complexity of largest right epididymal head cyst now measuring 2.9 x 3 cm. Small left varicocele. Electronically signed by: Jessy You MD 04/07/2025 04:40 PM [facility] Dictated By: Jessy You MD Signed By: <Electronically signed by Jessy You MD in OV> 04/07/25 1640 DD/ 1601 TD/TT: 04/07/25 1606 [employer]: AJAY us [facility] External Provider IMG US PROCEDURES Final Result * (ABNORMAL) Lipid Panel, Standard (10/21/2024 8:41 AM EDT) Triglycerides 117 <150 mg/dL [facility] Comment:Desirable Triglyceri de: less than 150 mg/dLBorderline High Triglyceride 150-199 mg/dLHigh Triglyceride: 200-499 mg/dLVery High Triglyceride: greater than or equal to 5OO mg/dL Cholesterol 197 <200 mg/dL [facility] Comment:Desirable Cholestero l: less than 200 mg/dLBorderline High Cholesterol: 200-239 mg/dLHigh Cholesterol: greater than 239 mg/dL LDL Cholesterol Calculated 122(H) <100 mg/dL [facility] Comment:Desirable LDL: less than 100 mg/dLNear Optimal/Above Optimal LDL: 110- 129 mg/dLBorderline High LDL: 130-159 mg/dLHigh LDL: 160-189 mg/dLVery High LDL: greater than or equal to 190 mg/dL HDL Cholesterol 52 >40 mg/dL [facility] Comment:Desirable HDL: great er than 40 mg/dL Note: This HDL assay may give artificially low results in patients with liver disease. Blood Venous blood specimen / Unknown 10/21/2024 8:41 AM EDT 10/21/2024 11:18 AM EDT [facility] LAB BLOOD ORDERABLES Final Re sult [facility] [address] [place] [address] [phone] * Cologuard?? colon cancer screening (08/27/2023 8:04 AM EDT) Cologuard Result Negative Negative 09/03/19 9:33 AM EDT [facility] (CLIA #:[id number]) Comment: NEGATIVE TEST RESULT. A negative Cologuard [...] (Petra Bell al, N Engl J Med 2014;370(14):9297-4616) The normal value (reference range) for this assay is negative. COLOGUARD RE-SCREENING RECOMMENDATION: Periodic colorectal cancer screening is an important part of preventive healthcare for asymptomatic individuals at average risk for colorectal cancer. Following a negative Cologuard result, the [place] Cancer Society and U.S. Multi-Society Task Force screening guidelines recommend a Cologuard re-screening interval of 3 years. References: [place] [employer] Society Guideline for Colorectal Cancer Screening: https://www.cancer.org/cancer/cfajp-xrelmk-pbcfwa/oiwbvlbjs-wzajgjnbu-bryzxey/ac s-rec ommendations.html.; Horacio DK, Chrissy CHA, Natalia SABA, Colorectal Cancer Screening: Recommendations for Physicians and Patients from the U.S. Multi-Society Task Force on Colorectal Cancer Screening , Am J Gastroenterology 2017; 112:2571-6562. TEST DESCRIPTION: Composite algorithmic analysis of stool [...] screened with both Cologuard and colonoscopy. (Petra Aj. et al, N Engl J Med 2014;370(14):7788-8763.) Cologuard may produce a false negative or false positive result (no colorectal cancer or precancerous polyp present at colonoscopy follow up). A negative Cologuard test result does not guarantee the absence of CRC or advanced adenoma (pre-cancer). The current Cologuard screening interval is every 3 years. ([place] Cancer Society and U.S. Multi-Society Task Force). Cologuard performance data in a 10,000 patient pivotal study using colonoscopy as the reference method can be accessed at the following location: www.[employer]Rel[employer].com/results. Additional description of the Cologuard test process, warnings and precautions can be found at www.Influx[employer] Soybean Farmsrd.com. Stool specimen (specimen) 08/27/2023 8:04 AM EDT 08/29/2023 12:00 PM EDT [facility] LAB MOLECULAR DIAGNOSTICS ORD ERABLES Final Result [facility] (CLIA #:[id number]) [place] [address], * HEPATITIS C AB W/REFL TO HCV RNA, QN, PCR (10/30/2021 11:37 AM EDT) HEPATITIS C ANTIBODY NON-REACT JUAN PABLO NON-REACT JUAN PABLO [facility] INDEX 0.13 <1.00 [facility] Comment: HCV antibody was non-reactive. There is no laboratory evidence of HCV infection. In most cases, no further action is required. However, if recent HCV exposure is suspected, a test for HCV RNA (test code 75857) is suggested. For additional information please refer to http://itBit.WorldRemit/faq/NQN49s7 (This link is being provided for informational/ educational purposes only.) 10/30/2021 11:3 7 AM EDT [facility] MOLD CHIPPER HISTORICAL/NON ORDERABLE LABS Final Result Performing Organization Address City/[facility]/ZIP Co de Phone Number [facility] [address] * HIV 1/2 ANTIGEN/ANTIBODY,FOURTH GENERATION W/RFL (10/30/2021 11:37 AM EDT) HIV-1/2 ANTIGEN AND ANTIBODIES, 4TH GENERATION W/ REFLEX NON-REACT JUAN PABLO NON-REACT JUAN PABLO [facility] Comment: HIV-1 antigen and HIV-1/HIV-2 [...] purpose. For additional information please refer to http://itBit.WorldRemit/faq/GTQ241 (This link is being provided for informational/ educational purposes only.) The performance of this assay has not been clinically validated in patients less than 2 years old. 10/30/2021 11:3 7 AM EDT [facility] LAB BLOOD ORDERABLES Final Re sult [facility] [address] from Last 3 Months or Most Recently Relevant to Health Maintenance Insurance [facility] C3 HSN PARTIAL Care Teams Shoe Stamper Relationship Specialty Start Date End Date Florina Marshall [facility] [address] [place] [address] PCP - General Family Medicine 02/27/21
--- OUTSIDE RECORDS SUMMARY | 2025-04-12 10:16 | XMS_ITS | Encounter Summary ---
Author Organization [employer] Address [address] [facility] 7t [place] [address] Care Team Providers Care Engine Service Repairer Name Role Phone Florina Marshall [facility] Primary Care Provider [phone] Reason for Visit * Reason Onset Date Comments Med Refill 08/11/2024 Encounter Details Date Type Department Care Team (Late st Contact Info) Description 08/11/2024 Refill [facility] MEDICINE [address] [place] [address] Florina MarshallFORM[facility]LY [facility] [address] [place] [address] Seasonal allergies Social History Tobacco Use Types [...] documented as of this encounter Care Teams Engine Service Repairer Relationship Specialty Start Date End Date Florina Marshall FNP [address] [place] [address] PCP - General Family Medicine 02/27/21 documented as of this encounter
--- OUTSIDE RECORDS SUMMARY | 2025-04-12 10:16 | XMS_ITS | Encounter Summary ---
Author Organization [employer] Address [address] [facility] 7t [place] [address] Care Team Providers Care Flasher Adjuster Name Role Phone Florina Marshall [facility] Primary Care Provider [phone] Encounter Details Date Type Department Care Team (Late st Contact Info) Description 06/30/2022 Orders Only [facility] MED & PEDS [address] [place] [address] Tina Husain LPN Social History Tobacco Use [...] on filedocumented in this encounter Care Teams Flasher Adjuster Relationship Specialty Start Date End Date Rolando KATHRINE Heaton [address] [place] [address] PCP - General Family Medicine 02/27/21 documented as of this encounter
--- OUTSIDE RECORDS SUMMARY | 2025-04-12 10:16 | XMS_ITS | Encounter Summary ---
Author Organization [employer] Address [address] [facility] 7t [place] [address] Care Team Providers Care Civil Preparedness Coordinator Name Role Phone Florina Marshall [facility] Primary Care Provider [phone] Encounter Details Date Type Department Care Team (Late st Contact Info) Description 04/07/2025 Orders Only [facility] External Provider, [facility] Social History Tobacco Use Types Packs/Day Years [...] US SCROTUM Routine 04/07/2025 4:01 PM EST documented in this encounter Results * US Scrotum (04/07/2025 4:01 PM EST) Anatomical Region Laterality Modality Body Ultrasound 04/07/2025 4:01 PM EST Narrative 04/07/2025 4:43 PM EST [place] [address] Ultrasound Report Signed Patient: Alec Acosta MR#: [id number] 2 : 1975 Acct:[id number] Age/Sex: 49 / M ADM Date: 04/07/25 Loc: . Attending Dr: Katey BARBOZA Ordering Physician: Katey Childers Date of Service: 04/07/25 Procedure(s): US scrotum Accession Number(s): [id number] cc: Katey Childers; [facility] Reason for Exam: N50.3 - Cyst of [...] 04/07/25 1640 DD/ 1601 TD/TT: 04/07/25 1606 Instrument Engineer: AJAY Procedure Note Donotuseinterpreter, Image - 04/07/[address] [address] Ultrasound Report Signed Patient: Alec Acosta PMR#: [id number] 2 : 1975Acct:[id number] Age/Sex: 49 / MADM Date: 04/07/25 Loc: HO.US Attending Dr: Katey BARBOZA Ordering Physician: Katey Childers Date of Service: 04/07/25 Procedure(s): US scrotum Accession Number(s): [id number] cc: Katey Childers [facility]; RolandoFlorina [facility] Reason for Exam: N50.3 - Cyst of [...] by: Jessy You MD 04/07/2025 04:40 PM [facility] Dictated By: Jessy You MD Signed By: <Electronically signed by Jessy You MD in OV> 04/07/25 1640 DD/ 1601 TD/TT: 04/07/25 1606 Instrument Engineer: AJAY [facility] External Provider IMG US PROCEDURES Final Result documented in this encounter Visit Diagnoses Not on filedocumented in this encounter Additional Health Concerns Assessment Noted Time PHQ-9 Depression Total Score: 0 10/20/19 10:28 AM EDT documented as of this encounter Care Teams Civil Preparedness Coordinator Relationship Specialty Start Date End Date Florina Marshall FNP [address] [place] [address] PCP - General Family Medicine 02/27/21 documented as of this encounter
--- OUTSIDE RECORDS SUMMARY | 2025-04-12 10:16 | XMS_ITS | Encounter Summary ---
Author Organization [employer] Address [address] [facility] 7t [place] [address] Care Team Providers Care Coupon Redemption Clerk Name Role Phone Florina Marshall [facility] Primary Care Provider [phone] Encounter Details Date Type Department Care Team (Late st Contact Info) Description 07/30/2022 Orders Only [facility] CHC MED & PEDS [address] [place] [address] Tina Husain LPN Social History Tobacco Use [...] on filedocumented in this encounter Care Teams Coupon Redemption Clerk Relationship Specialty Start Date End Date Rolando KATHRINE Heaton [address] [place] [address] PCP - General Family Medicine 02/27/21 documented as of this encounter
--- OUTSIDE RECORDS SUMMARY | 2025-04-12 10:16 | XMS_ITS | Encounter Summary ---
Author Organization [employer] Address [address] [facility] 7t [place] [address] Care Team Providers Care Operations Liaison Name Role Phone Florina Marshall [facility] Primary Care Provider [phone] Reason for Visit * Reason Onset Date Comments Med Refill 02/28/2024 Encounter Details Date Type Department Care Team (Late st Contact Info) Description 02/28/2024 Refill [facility] MEDICINE [address] [place] [address] [facility] [address] [place] [address] Seasonal allergies Social History Tobacco Use Types [...] documented as of this encounter Care Teams Operations Liaison Relationship Specialty Start Date End Date Florina Marshall FNP [address] [place] [address] PCP - General Family Medicine 02/27/21 documented as of this encounter
--- OUTSIDE RECORDS SUMMARY | 2025-04-12 10:16 | XMS_ITS | Encounter Summary ---
Author Organization [employer] Address [address] [facility] 7t [place] [address] Care Team Providers Care Compressor Station Chief Engineer Name Role Phone Florina Marshall [facility] Primary Care Provider [phone] Reason for Visit * Reason Onset Date Comments Med Refill 04/18/2024 Encounter Details Date Type Department Care Team (Late st Contact Info) Description 04/18/2024 Refill [facility] MEDICINE [address] [place] [address] [facility] [address] [place] [address] Social History Tobacco Use Types Packs/Day Years [...] documented as of this encounter Care Teams Compressor Station Chief Engineer Relationship Specialty Start Date End Date Florina Marshall FNP [address] [place] [address] PCP - General Family Medicine 02/27/21 documented as of this encounter
--- OUTSIDE RECORDS SUMMARY | 2025-04-12 10:16 | XMS_ITS | Encounter Summary ---
Author Organization [employer] Address [address] 7[address] [place] [address] Care Team Providers Care Farmworker Vegetable Name Role Phone Florina Marshall [facility] Primary Care Provider [phone] Reason for Visit * Reason Onset Date Comments Med Refill 04/18/2024 Encounter Details Date Type Department Care Team (Late st Contact Info) Description 04/18/2024 Refill [facility] MED & PEDS [address] [place] [address] Rolando, [facility] [address] [place] [address] Essential hypertension Social History Tobacco Use Types [...] documented as of this encounter Care Teams Farmworker Vegetable Relationship Specialty Start Date End Date Florina Marshall FNP [address] [place] [address] PCP - General Family Medicine 02/27/21 documented as of this encounter
== END 2025-04-12 10:12 | disposition home or self-care (01) ==
LOC: HO.HUSH 09:22
PROVIDERS: PCP Nurse Practitioner Primary Care; Visit Provider Nurse Practitioner Family
DX: N50.3 Cyst of epididymis (principal); R36.1 Hematospermia; Z13.9 Encounter for screening, unspecified
CPT/HCPCS: 99213

== ENCOUNTER 2025-04-13 08:29 | Outpatient (REF) | payer MEDICAID, SELFPAY ==
--- OUTSIDE RECORDS SUMMARY | 2025-04-13 08:50 | XMS_ITS | Encounter Summary ---
Author Organization [employer] Address 75 [facility] 7t [place] [address] Care Team Providers Care Borematic Operator Name Role Phone Florina Marshall [facility] Primary Care Provider [phone] Reason for Visit * Reason Onset Date Comments Med Refill 03/02/2025 Encounter Details Date Type Department Care Team (Late st Contact Info) Description 03/02/2025 Refill [facility] MEDICINE [address] [place] [address] Amy Foreman MD [address] [place] [address] Essential hypertension Social History Tobacco Use Types [...] documented as of this encounter Care Teams Borematic Operator Relationship Specialty Start Date End Date Florina Marshall FNP [address] [place] [address] PCP - General Family Medicine 02/27/21 documented as of this encounter
--- OUTSIDE RECORDS SUMMARY | 2025-04-13 08:50 | XMS_ITS | Encounter Summary ---
Author Organization [employer] Address 75 [facility] 7t [place] [address] Care Team Providers Care Fire Sprinkler Apparatus Inspector Name Role Phone Florina Marshall [facility] Primary Care Provider [phone] Reason for Visit * Reason Onset Date Comments Med Refill 11/10/2024 Encounter Details Date Type Department Care Team (Late st Contact Info) Description 11/10/2024 Refill [facility] [address] [place] [address] [facility] [address] [place] [address] Seasonal allergies Social History Tobacco Use Types [...] documented as of this encounter Care Teams Fire Sprinkler Apparatus Inspector Relationship Specialty Start Date End Date Florina Marshall FNP [address] [place] [address] PCP - General Family Medicine 02/27/21 documented as of this encounter
--- OUTSIDE RECORDS SUMMARY | 2025-04-13 08:50 | XMS_ITS | Encounter Summary ---
Author Organization [employer] Address [address] [facility] 7t [place] [address] Care Team Providers Care Tafe Lecturer Name Role Phone Florina Marshall [facility] Primary Care Provider Reason for Visit * Reason Onset Date Comments Med Refill 09/13/2024 Encounter Details Date Type Department Care Team (Late st Contact Info) Description 09/13/2024 Refill [facility] MEDICINE [address] [place] [address] [facility] [address] [place] [address] Essential hypertension Social History Tobacco Use Types [...] documented as of this encounter Care Teams Tafe Lecturer Relationship Specialty Start Date End Date Florina Marshall FNP [address] [place] [address] PCP - General Family Medicine 02/27/21 documented as of this encounter
--- OUTSIDE RECORDS SUMMARY | 2025-04-13 08:50 | XMS_ITS | Encounter Summary ---
Author Organization [employer] Address [address] [facility] [address] 7t [place] [address] Care Team Providers Care Braided Rug Maker Name Role Phone Florina Marshall [facility] Primary Care Provider [phone] Reason for Visit * Reason Onset Date Comments Med Refill 02/18/2024 Encounter Details Date Type Department Care Team (Late st Contact Info) Description 02/18/2024 Refill [facility] CHC MED & PEDS [address] [place] [address] Rolando, [facility] [address] [place] [address] Social History Tobacco Use Types Packs/Day Years [...] documented as of this encounter Care Teams Braided Rug Maker Relationship Specialty Start Date End Date Florina Marhsall FNP [address] [place] [address] PCP - General Family Medicine 02/27/21 documented as of this encounter
--- OUTSIDE RECORDS SUMMARY | 2025-04-13 08:50 | XMS_ITS | Encounter Summary ---
Author Organization [employer] Address 75 [facility] 7t [place] [address] Care Team Providers Care Front Desk Associate Name Role Phone Florina Marshall [facility] Primary Care Provider [phone] Encounter Details Date Type Department Care Team (Late st Contact Info) Description 04/07/2023 Orders Only [facility] CHC MED & PEDS [address] [place] [address] Tina Husain LPN Social History Tobacco Use [...] on filedocumented in this encounter Care Teams Front Desk Associate Relationship Specialty Start Date End Date Rolando KATHRINE Heaton [address] [place] [address] PCP - General Family Medicine 02/27/21 documented as of this encounter
--- OUTSIDE RECORDS SUMMARY | 2025-04-13 08:50 | XMS_ITS | Encounter Summary ---
Author Organization [employer] Address 75 [facility] 7t [place] [address] Care Team Providers Care Beef Cattle Specialist Name Role Phone Florina Marshall [facility] Primary Care Provider [phone] Reason for Visit * Reason Onset Date Comments Med Refill 04/18/2024 Encounter Details Date Type Department Care Team (Late st Contact Info) Description 04/18/2024 Refill [facility] MEDICINE 230 [place] [address] [facility] [address] [place] [address] Social History Tobacco Use Types Packs/Day Years [...] documented as of this encounter Care Teams Beef Cattle Specialist Relationship Specialty Start Date End Date Florina Marshall FNP [address] [place] [address] PCP - General Family Medicine 02/27/21 documented as of this encounter
--- OUTSIDE RECORDS SUMMARY | 2025-04-13 08:50 | XMS_ITS | Encounter Summary ---
Author Organization [employer] Address 75 [facility] 7t [place] [address] Care Team Providers Care Real Estate Underwriter Name Role Phone Florina Marshall [facility] Primary Care Provider [phone] Encounter Details Date Type Department Care Team (Late st Contact Info) Description 07/30/2022 Orders Only [facility] CHC MED & PEDS [address] [place] [address] Tina Husain LPN Social History Tobacco Use [...] on filedocumented in this encounter Care Teams Real Estate Underwriter Relationship Specialty Start Date End Date Rolando KATHRINE Heaton [address] [place] [address] PCP - General Family Medicine 02/27/21 documented as of this encounter
--- OUTSIDE RECORDS SUMMARY | 2025-04-13 08:50 | XMS_ITS | Encounter Summary ---
Author Organization [employer] Address 75 [facility] 7t [place] [address] Care Team Providers Care Docent Coordinator Name Role Phone Florina Marshall [facility] Primary Care Provider [phone] Encounter Details Date Type Department Care Team (Late st Contact Info) Description 02/03/2023 Orders Only [facility] CHC MED & PEDS [address] [place] [address] Tina Husain LPN Social History Tobacco Use [...] on filedocumented in this encounter Care Teams Docent Coordinator Relationship Specialty Start Date End Date Rolando KATHRINE Heaton [address] [place] [address] PCP - General Family Medicine 02/27/21 documented as of this encounter
--- OUTSIDE RECORDS SUMMARY | 2025-04-13 08:50 | XMS_ITS | Encounter Summary ---
Author Organization [employer] Address 75 [facility] 7t [place] [address] Care Team Providers Care Box Covering Machine Operator Name Role Phone Florina Marshall [facility] Primary Care Provider [phone] Reason for Visit * Reason Onset Date Comments Med Refill 08/11/2024 Encounter Details Date Type Department Care Team (Late st Contact Info) Description 08/11/2024 Refill [facility] MEDICINE [address] [place] [address] [facility] [address] [place] [address] Seasonal allergies Social History Tobacco Use Types [...] documented as of this encounter Care Teams Box Covering Machine Operator Relationship Specialty Start Date End Date Florina Marshall FNP [address] [place] [address] PCP - General Family Medicine 02/27/21 documented as of this encounter
--- OUTSIDE RECORDS SUMMARY | 2025-04-13 08:50 | XMS_ITS | Encounter Summary ---
Author Organization [employer] Address [address] [facility] 7t [place] [address] Care Team Providers Care Cutlet Maker Pork Name Role Phone Florina Marshall [facility] Primary Care Provider [phone] Reason for Visit * Reason Onset Date Comments Results 04/21/2024 Encounter Details Date Type Department Care Team ([facility] st Contact Info) Description 04/21/2024 Telephone [facility] MEDICINE 230 [place], [place] [phone] Florina Marshall [facility] 230 [place] [address] Results Social History Tobacco Use Types Packs/Day [...] of results:labs Date when done: 04/20/24 Facility: [facility] documented in this encounter Plan of Treatment Not on file documented as of this encounter Visit Diagnoses Not on filedocumented in this encounter Additional Health Concerns Assessment Noted Time PHQ-9 Depression Total Score: 0 10/16/19 9:50 AM EDT documented as of this encounter Care Teams Cutlet Maker Pork Relationship Specialty Start Date End Date Florina Marshall FNP [address] [place] [address] PCP - General Family Medicine 02/27/21 documented as of this encounter
--- OUTSIDE RECORDS SUMMARY | 2025-04-13 08:50 | XMS_ITS | Encounter Summary ---
Author Organization [employer] Address [address] [facility] [address] 7t [place] [address] Care Team Providers Care Health Information Systems Technician Name Role Phone Florina Marshall [facility] Primary Care Provider [phone] Reason for Visit * Reason Onset Date Comments Med Refill 04/18/2024 Encounter Details Date Type Department Care Team (Late st Contact Info) Description 04/18/2024 Refill [facility] CHC MED & PEDS [address] [place] [address] Rolando, [facility] [address] [facility] [place] [address] Essential hypertension Social History Tobacco Use Types [...] documented as of this encounter Care Teams Health Information Systems Technician Relationship Specialty Start Date End Date Florina Marshall FNP [address] [place] [address] PCP - General Family Medicine 02/27/21 documented as of this encounter
--- OUTSIDE RECORDS SUMMARY | 2025-04-13 08:50 | XMS_ITS | Clinical Summary ---
Author Organization [employer] Address 75 [facility] 7t [place] [address] Care Team Providers Care Fire Warden Name Role Phone Florina Marshall [facility] Primary Care Provider [phone] Allergies No known active allergies Medications cetirizine [...] annual eye exam so referred today to auto vinyl top installer -no stye or chalazion , no indication [...] CT screen: Age 50 Vision Exam: Through [facility] Dental Care: Jairo Cedenoley History of tobacco use disorder 08/10/2023 Overview (08/10/2023): Former Quit 2021 Assessment & Plan (08/12/2023 6:35 AM EDT): Congratulated patient Mixed hyperlipidemia 08/10/2023 Overview (08/10/2023): Rosuvastatin 20mg daily Assessment & Plan (08/12/2023 6:35 AM EDT): Well controlled Continue current regimen Encounters Date Type Department Care Team Description 04/07/2025 Orders Only [facility] External Provider, [facility] 03/02/2025 Refill [facility] MEDICINE 230 [place], [place] [phone] Amy Foreman MD Essential hypertension 03/02/2025 Refill [facility] MEDICINE [address] [place], [place] [phone] Florina Marshall, KATHRINE from Last 3 Months [...] PM EST Narrative 04/07/2025 4:43 PM EST [address] [address] Ultrasound Report Signed Patient: Alec Acosta MR#: [id number] 2 : 1975 Acct:[id number] Age/Sex: 49 / M ADM Date: 04/07/25 Loc: HO.US Attending Dr: Katey MANCIA Ordering Physician: Katey Childers Date of Service: 04/07/25 Procedure(s): US scrotum Accession Number(s): [id number] cc: Katey Childers; [facility] Reason for Exam: N50.3 - Cyst of [...] MD Signed By: <Electronically signed by Jessy oYu MD in OV> 04/07/25 1640 DD/ 1601 TD/TT: 04/07/25 1606 Complaint Investigator: AJAY Procedure Note Donotuseinterpreter, Image - 04/07/[address] [address] Ultrasound Report Signed Patient: Alec Acosta PMR#: [id number] 2 : 1975Acct:[id number] Age/Sex: 49 / MADM Date: 04/07/25 Loc: HO.US [facility] Ordering Physician: Katey Childers Date of Service: 04/07/25 Procedure(s): US scrotum Accession Number(s): [id number] cc: Katey Childers [facility]; [facility] Reason for Exam: N50.3 - Cyst of [...] by: Jessy You MD 04/07/2025 04:40 PM [facility] Dictated By: Jessy You MD Signed By: <Electronically signed by Jessy You MD in OV> 04/07/25 1640 DD/ 1601 TD/TT: 04/07/25 1606 Complaint Investigator: AJAY us [facility] External Provider IMG US PROCEDURES Final Result * (ABNORMAL) Lipid Panel, Standard (10/21/2024 8:41 AM EDT) Triglycerides 117 <150 mg/dL [facility] Comment:Desirable Triglyceri de: less than 150 mg/dLBorderline High Triglyceride 150-199 mg/dLHigh Triglyceride: 200-499 mg/dLVery High Triglyceride: greater than or equal to 5OO mg/dL Cholesterol 197 <200 mg/dL [facility] Comment:Desirable Cholestero l: less than 200 mg/dLBorderline High Cholesterol: 200-239 mg/dLHigh Cholesterol: greater than 239 mg/dL LDL Cholesterol Calculated 122(H) <100 mg/dL [facility] Comment:Desirable LDL: less than 100 mg/dLNear Optimal/Above Optimal LDL: 110- 129 mg/dLBorderline High LDL: 130-159 mg/dLHigh LDL: 160-189 mg/dLVery High LDL: greater than or equal to 190 mg/dL HDL Cholesterol 52 >40 mg/dL [facility] Comment:Desirable HDL: great er than 40 mg/dL Note: This HDL assay may give artificially low results in patients with liver disease. Blood Venous blood specimen / Unknown 10/21/2024 8:41 AM EDT 10/21/2024 11:18 AM EDT [facility] BLOOD ORDERABLES Final Re sult [facility] [address] [place] [address] [phone] * Cologuard?? colon cancer screening (08/27/2023 8:04 AM EDT) Cologuard Result Negative Negative 09/03/19 9:33 AM EDT [employer] (CLIA #:[id number]) Comment: NEGATIVE TEST RESULT. A negative Cologuard [...] (Petra Bell al, N Engl J Med 2014;370(14):8727-0156) The normal value (reference range) for this assay is negative. COLOGUARD RE-SCREENING RECOMMENDATION: Periodic colorectal cancer screening is an important part of preventive healthcare for asymptomatic individuals at average risk for colorectal cancer. Following a negative Cologuard result, the [place] Cancer Society and U.S. Multi-Society Task Force screening guidelines recommend a Cologuard re-screening interval of 3 years. References: [place] [employer] Guideline for Colorectal Cancer Screening: https://www.cancer.org/cancer/lykyv-oabrit-lxjmyp/robwrexba-wbvinaysl-lqirvgf/ac s-rec ommendations.html.; Horacio DK, Chrissy CHA, Natalia SABA, Colorectal Cancer Screening: Recommendations for Physicians and Patients from the U.S. Multi-Society Task Force on Colorectal Cancer Screening , Am J Gastroenterology 2017; 112:7002-3774. TEST DESCRIPTION: Composite algorithmic analysis of stool [...] Aj. et al, N Engl J Med 2014;370(14):3372-2738.) Cologuard may produce a false negative or false positive result (no colorectal cancer or precancerous polyp present at colonoscopy follow up). A negative Cologuard test result does not guarantee the absence of CRC or advanced adenoma (pre-cancer). The current Cologuard screening interval is every 3 years. ([place] [employer] Society and U.S. Multi-Society Task Force). Cologuard performance data in a 10,000 patient pivotal study using colonoscopy as the reference method can be accessed at the following location: www.[employer].com/results. Additional description of the Cologuard test process, warnings and precautions can be found at www.[employer].com. Stool specimen (specimen) 08/27/2023 8:04 AM EDT 08/29/2023 12:00 PM EDT [facility] MOLECULAR DIAGNOSTICS ORD ERABLES Final Result [facility] (CLIA #:[id number]) [place] [address], * HEPATITIS C AB W/REFL TO HCV [...] a test for HCV RNA (test code 00993) is suggested. For additional information please refer to http://[employer].Keecker/faq/SEV72c0 (This link is being provided for informational/ educational purposes only.) 10/30/2021 11:3 7 AM EDT [facility] CLIENT SERVICE SUPERVISOR HISTORICAL/NON ORDERABLE LABS Final Result Performing Organization Address City/[facility]/ZIP Co de Phone Number [facility] [address] * HIV 1/2 ANTIGEN/ANTIBODY,FOURTH GENERATION W/RFL [...] purpose. For additional information please refer to http://[employer].Keecker/faq/GLX231 (This link is being provided for informational/ educational purposes only.) The performance of this assay has not been clinically validated in patients less than 2 years old. 10/30/2021 11:3 7 AM EDT [facility] BLOOD ORDERABLES Final Re sult [facility] [address] from Last 3 Months or Most Recently Relevant to Health Maintenance Insurance [facility] C3 HSN PARTIAL Care Teams Fire Warden Relationship Specialty Start Date End Date Florina Marshall [facility] [address] [place] [address] PCP - General Family Medicine 02/27/21
--- OUTSIDE RECORDS SUMMARY | 2025-04-13 08:50 | XMS_ITS | Encounter Summary ---
Author Organization [employer] Address 75 [facility] 7t [place] [address] Care Team Providers Care Build Manager Name Role Phone Florina Marshall [facility] Primary Care Provider [phone] Encounter Details Date Type Department Care Team (Late st Contact Info) Description 07/22/2022 Orders Only [facility] MEDICINE [address] [place], [place] [phone] Christin Payan LPN Social History Tobacco Use [...] on filedocumented in this encounter Care Teams Build Manager Relationship Specialty Start Date End Date Florina MarshallKATHRINE [address] [place] [address] PCP - General Family Medicine 02/27/21 documented as of this encounter
--- OUTSIDE RECORDS SUMMARY | 2025-04-13 08:50 | XMS_ITS | Encounter Summary ---
Author Organization [employer] Address 75 [facility] 7t [place] [address] Care Team Providers Care Rn Allergy Name Role Phone Florina Marshall [facility] Primary Care Provider [phone] Encounter Details Date Type Department Care Team (Late st Contact Info) Description 06/30/2022 Orders Only [facility] CHC MED & PEDS [address] [place] [address] Tnia Husain LPN Social History Tobacco Use Types [...] on filedocumented in this encounter Care Teams Rn Allergy Relationship Specialty Start Date End Date Rolando KATHRINE Heaton [address] [place] [address] PCP - General Family Medicine 02/27/21 documented as of this encounter
--- OUTSIDE RECORDS SUMMARY | 2025-04-13 08:50 | XMS_ITS | Encounter Summary ---
Author Organization [employer] Address 75 [facility] 7t [place] [address] Care Team Providers Care Line Production Cook Name Role Phone Florina Marshall [facility] Primary Care Provider [phone] Reason for Visit * Reason Onset Date Comments Med Refill 09/13/2024 Encounter Details Date Type Department Care Team (Late st Contact Info) Description 09/13/2024 Refill [facility] MEDICINE [address] [place] [address] [facility] [address] [place] [address] Social History Tobacco Use Types Packs/Day Years [...] documented as of this encounter Care Teams Line Production Cook Relationship Specialty Start Date End Date Florina Marshall FNP [address] [place] [address] PCP - General Family Medicine 02/27/21 documented as of this encounter
--- OUTSIDE RECORDS SUMMARY | 2025-04-13 08:50 | XMS_ITS | Encounter Summary ---
Author Organization [employer] Address 75 [facility] 7t [place] [address] Care Team Providers Care Inventory Assistant Name Role Phone Florina Marshall [facility] Primary Care Provider [phone] Reason for Visit * Reason Onset Date Comments Med Refill 02/28/2024 Encounter Details Date Type Department Care Team (Late st Contact Info) Description 02/28/2024 Refill [facility] MEDICINE [address] [place] [address] [facility] [address] [place] [address] Seasonal allergies Social History Tobacco Use Types [...] documented as of this encounter Care Teams Inventory Assistant Relationship Specialty Start Date End Date Florina Marshall FNP [address] [place] [address] PCP - General Family Medicine 02/27/21 documented as of this encounter
[2025-04-13 12:33] LABS: Prostate Specific Antigen 0.84 ng/mL (<0.05-4.0)
== END 2025-04-13 08:30 | disposition home or self-care (01) ==
LOC: HO.HHCL 08:29
PROVIDERS: PCP Registered Nurse; Visit Provider Nurse Practitioner Family
DX: N40.0 Benign prostatic hyperplasia without lower urinary tract symptoms (principal)
CPT/HCPCS: 36415; 84153